=== PATIENT | female | born 1950 | race Caucasian/White ===

== ENCOUNTER 2020-12-25 05:48 | Outpatient (RCR) | payer MEDICARE, MEDICAID, SELFPAY ==
[2020-11-27] MEDS: Normal Saline Flush 10 ML SYR IVP (12:16)
[2020-11-27] MEDS: Heparin 500 UNITS/5 ML SYRINGE (12:16)
[2020-11-27 12:21] LABS: Abs Immature Grans 0.02 10^3/uL (0.0-0.06); Absolute Basophil Count 0.04 10^3/uL (0.0-0.2); Absolute Eosinophil Count 0.38 10^3/uL (0.0-0.7); Absolute Lymphocyte Count 2.53 10^3/uL (1.2-3.4); Absolute Monocyte Count 0.63 10^3/uL (0.1-0.8); Absolute Neutrophil Count 2.78 10^3/uL (1.2-6.7); Basophils % 0.6; HCT 35.6 % (36.0-46.0); HGB 11.4 g/dL (11.2-15.7); Immature Grans % 0.3; Lymphocytes % 39.7; MCH 28.8 pg (27.0-33.0); MCV 89.9 fL (80-95); MPV 9.8 fL (8.0-11.0); Monocytes % 9.9; Neutrophils % 43.5; Nucleated RBC 0 %; Platelet Count 193 10^3/uL (130-400); RBC 3.96 10^6/uL (3.93-5.22); RDW 15.7 % (11.7-14.6); WBC 6.38 10^3/uL (4.4-10.8)
[2020-11-27 12:34] LABS: ALT 28 U/L (14-59); AST 21 U/L (15-37); Albumin 3.4 g/dL (3.4-5.0); Alkaline Phosphatase 115 U/L (46-116); Anion Gap 9.6 mmol/L (3-11); BUN 16 mg/dL (7-18); Bilirubin, Total 0.4 mg/dL (0.2-1.0); CO2 27.4 mmol/L (21.0-32.0); CREATININE 0.8 mg/dL (0.55-1.02); Chloride 103 mmol/L (98-107); Glucose 118 mg/dL (74-106); Potassium 4.1 mmol/L (3.5-5.1); Sodium 140 mmol/L (136-145)
[2020-11-27 17:23] LABS: CEA <2.0 ng/mL (See Note)
[2020-12-01] MEDS: Normal Saline Flush 10 ML SYR IVP (10:45)
[2020-12-01 11:09] LABS: Abs Immature Grans 0.01 10^3/uL (0.0-0.06); Absolute Basophil Count 0.06 10^3/uL (0.0-0.2); Absolute Eosinophil Count 0.33 10^3/uL (0.0-0.7); Absolute Lymphocyte Count 2.46 10^3/uL (1.2-3.4); Absolute Monocyte Count 0.56 10^3/uL (0.1-0.8); Absolute Neutrophil Count 3.58 10^3/uL (1.2-6.7); Basophils % 0.9; Eosinophils % 4.7; HCT 35.5 % (36.0-46.0); HGB 11.3 g/dL (11.2-15.7); Immature Grans % 0.1; Lymphocytes % 35.1; MCH 28.4 pg (27.0-33.0); MCHC 31.8 % (32.0-36.0); MCV 89.2 fL (80-95); MPV 9.8 fL (8.0-11.0); Neutrophils % 51.2; Nucleated RBC 0 %; Platelet Count 167 10^3/uL (130-400); RBC 3.98 10^6/uL (3.93-5.22); RDW 15.9 % (11.7-14.6); RDW-SD 52.2 fL
[2020-12-01 11:33] LABS: ALT 25 U/L (14-59); AST 23 U/L (15-37); Albumin 3.4 g/dL (3.4-5.0); Alkaline Phosphatase 122 U/L (46-116); Anion Gap 12.8 mmol/L (3-11); BUN 17 mg/dL (7-18); Bilirubin, Total 0.4 mg/dL (0.2-1.0); CO2 24.2 mmol/L (21.0-32.0); CREATININE 0.8 mg/dL (0.55-1.02); Calcium 9.1 mg/dL (8.5-10.1); Chloride 104 mmol/L (98-107); Glucose 109 mg/dL (74-106); Potassium 3.8 mmol/L (3.5-5.1); Sodium 141 mmol/L (136-145); Total Protein 7.9 g/dL (6.4-8.2)
[2020-12-02 08:06] LABS: CEA <2.0 ng/mL (See Note)
[2020-12-10] MEDS: Normal Saline Flush 10 ML SYR IVP (08:53)
[2020-12-10] MEDS: Heparin 500 UNITS/5 ML SYRINGE IV (08:54)
[2020-12-10 08:56] LABS: Abs Immature Grans 0.03 10^3/uL (0.0-0.06); Absolute Basophil Count 0.06 10^3/uL (0.0-0.2); Absolute Eosinophil Count 0.59 10^3/uL (0.0-0.7); Absolute Neutrophil Count 2.72 10^3/uL (1.2-6.7); Basophils % 0.8; HCT 34.7 % (36.0-46.0); HGB 11.2 g/dL (11.2-15.7); Immature Grans % 0.4; Lymphocytes % 43.2; MCH 29.2 pg (27.0-33.0); MCHC 32.3 % (32.0-36.0); MCV 90.6 fL (80-95); Monocytes % 10.8; Neutrophils % 36.8; Nucleated RBC 0 %; Platelet Count 194 10^3/uL (130-400); RBC 3.83 10^6/uL (3.93-5.22); RDW 15.5 % (11.7-14.6); RDW-SD 51.1 fL
[2020-12-10 09:24] LABS: ALT 25 U/L (14-59); AST 19 U/L (15-37); Albumin 3.4 g/dL (3.4-5.0); Alkaline Phosphatase 116 U/L (46-116); Anion Gap 8.5 mmol/L (3-11); BUN 34 mg/dL (7-18); Bilirubin, Total 0.4 mg/dL (0.2-1.0); CO2 27.5 mmol/L (21.0-32.0); CREATININE 0.9 mg/dL (0.55-1.02); Calcium 9.1 mg/dL (8.5-10.1); Chloride 103 mmol/L (98-107); Glucose 172 mg/dL (74-106); Potassium 4.2 mmol/L (3.5-5.1); Sodium 139 mmol/L (136-145); Total Protein 7.8 g/dL (6.4-8.2)
[2020-12-15] MEDS: Normal Saline Flush 10 ML SYR IVP (11:20)
[2020-12-15 11:43] LABS: Abs Immature Grans 0.02 10^3/uL (0.0-0.06); Absolute Basophil Count 0.05 10^3/uL (0.0-0.2); Absolute Eosinophil Count 0.31 10^3/uL (0.0-0.7); Absolute Lymphocyte Count 2.34 10^3/uL (1.2-3.4); Absolute Monocyte Count 0.88 10^3/uL (0.1-0.8); Absolute Neutrophil Count 3.48 10^3/uL (1.2-6.7); Basophils % 0.7; Eosinophils % 4.4; HCT 37.5 % (36.0-46.0); Immature Grans % 0.3; Lymphocytes % 33.1; MCH 28.9 pg (27.0-33.0); MCV 90.4 fL (80-95); Monocytes % 12.4; Neutrophils % 49.1; Nucleated RBC 0 %; Platelet Count 148 10^3/uL (130-400); RBC 4.15 10^6/uL (3.93-5.22); RDW 15.9 % (11.7-14.6); RDW-SD 52.1 fL; WBC 7.08 10^3/uL (4.4-10.8)
[2020-12-15 12:09] LABS: ALT 30 U/L (14-59); AST 28 U/L (15-37); Albumin 3.6 g/dL (3.4-5.0); Alkaline Phosphatase 131 U/L (46-116); Anion Gap 8.6 mmol/L (3-11); BUN 36 mg/dL (7-18); Bilirubin, Total 0.5 mg/dL (0.2-1.0); CO2 27.4 mmol/L (21.0-32.0); CREATININE 0.8 mg/dL (0.55-1.02); Calcium 9.1 mg/dL (8.5-10.1); Chloride 102 mmol/L (98-107); Glucose 159 mg/dL (74-106); Sodium 138 mmol/L (136-145); Total Protein 8.2 g/dL (6.4-8.2)
[2020-12-15 22:41] LABS: CEA <2.0 ng/mL (See Note)
== END 2020-12-26 23:59 | disposition home or self-care (01) ==
LOC: INF 05:48
PROVIDERS: Visit Provider Internal Medicine Hematology & Oncology
DX: C18.2 Malignant neoplasm of ascending colon (principal); Z45.2 Encounter for adjustment and management of vascular access device
CPT/HCPCS: 36591; 80053; 82378; 85025

== ENCOUNTER 2021-01-25 10:00 | Outpatient (RCR) | payer MEDICARE, MEDICAID, SELFPAY ==
[2020-12-28] MEDS: Normal Saline Flush 10 ML SYR IVP (13:25)
[2020-12-28 13:40] LABS: Abs Immature Grans 0.03 10^3/uL (0.0-0.06); Absolute Basophil Count 0.04 10^3/uL (0.0-0.2); Absolute Eosinophil Count 0.25 10^3/uL (0.0-0.7); Absolute Lymphocyte Count 2.24 10^3/uL (1.2-3.4); Absolute Neutrophil Count 3.62 10^3/uL (1.2-6.7); Basophils % 0.6; Eosinophils % 3.6; HCT 34.6 % (36.0-46.0); HGB 11.3 g/dL (11.2-15.7); Immature Grans % 0.4; Lymphocytes % 32.1; MCH 29.7 pg (27.0-33.0); MCHC 32.7 % (32.0-36.0); MCV 90.8 fL (80-95); Monocytes % 11.5; Neutrophils % 51.8; Nucleated RBC 0 %; RBC 3.81 10^6/uL (3.93-5.22); RDW 15.6 % (11.7-14.6); RDW-SD 50.5 fL; WBC 6.98 10^3/uL (4.4-10.8)
[2020-12-28 13:52] LABS: ALT 46 U/L (14-59); AST 29 U/L (15-37); Albumin 3.3 g/dL (3.4-5.0); Alkaline Phosphatase 121 U/L (46-116); Anion Gap 7.5 mmol/L (3-11); BUN 22 mg/dL (7-18); Bilirubin, Total 0.5 mg/dL (0.2-1.0); CO2 28.5 mmol/L (21.0-32.0); CREATININE 0.7 mg/dL (0.55-1.02); Calcium 9.2 mg/dL (8.5-10.1); Chloride 103 mmol/L (98-107); Glucose 112 mg/dL (74-106); Potassium 4.1 mmol/L (3.5-5.1); Sodium 139 mmol/L (136-145); Total Protein 7.7 g/dL (6.4-8.2)
[2020-12-28 13:53] LABS: Diff Comment PLT Morph Reviewed; Platelet Count 99 10^3/uL (130-400); RBC Morphology Normal
[2020-12-28 21:11] LABS: CEA 2.2 ng/mL (See Note)
[2021-01-12] MEDS: Normal Saline Flush 10 ML SYR IVP (10:32)
[2021-01-12 10:45] LABS: Abs Immature Grans 0.01 10^3/uL (0.0-0.06); Absolute Basophil Count 0.04 10^3/uL (0.0-0.2); Absolute Eosinophil Count 0.27 10^3/uL (0.0-0.7); Absolute Lymphocyte Count 1.81 10^3/uL (1.2-3.4); Absolute Monocyte Count 0.75 10^3/uL (0.1-0.8); Absolute Neutrophil Count 1.63 10^3/uL (1.2-6.7); Basophils % 0.9; HCT 35.6 % (36.0-46.0); HGB 11.5 g/dL (11.2-15.7); Immature Grans % 0.2; Lymphocytes % 40.1; MCH 30.1 pg (27.0-33.0); MCHC 32.3 % (32.0-36.0); MCV 93.2 fL (80-95); MPV 10.2 fL (8.0-11.0); Monocytes % 16.6; Neutrophils % 36.2; Nucleated RBC 0 %; Platelet Count 102 10^3/uL (130-400); RBC 3.82 10^6/uL (3.93-5.22); RDW-SD 54.1 fL; WBC 4.51 10^3/uL (4.4-10.8)
[2021-01-12 11:00] LABS: ALT 42 U/L (14-59); AST 33 U/L (15-37); Albumin 3.2 g/dL (3.4-5.0); Alkaline Phosphatase 128 U/L (46-116); Anion Gap 8.8 mmol/L (3-11); BUN 15 mg/dL (7-18); Bilirubin, Total 0.8 mg/dL (0.2-1.0); CO2 27.2 mmol/L (21.0-32.0); CREATININE 0.8 mg/dL (0.55-1.02); Calcium 8.9 mg/dL (8.5-10.1); Chloride 104 mmol/L (98-107); Glucose 118 mg/dL (74-106); Potassium 3.9 mmol/L (3.5-5.1); Sodium 140 mmol/L (136-145); Total Protein 7.7 g/dL (6.4-8.2)
[2021-01-12 22:27] LABS: CEA 2.2 ng/mL (See Note)
[2021-01-25] MEDS: Normal Saline Flush 10 ML SYR IVP (10:32)
[2021-01-25 10:48] LABS: Abs Immature Grans 0.01 10^3/uL (0.0-0.06); Absolute Basophil Count 0.04 10^3/uL (0.0-0.2); Absolute Eosinophil Count 0.17 10^3/uL (0.0-0.7); Absolute Lymphocyte Count 1.61 10^3/uL (1.2-3.4); Absolute Monocyte Count 0.67 10^3/uL (0.1-0.8); Absolute Neutrophil Count 2.43 10^3/uL (1.2-6.7); Basophils % 0.8; Eosinophils % 3.4; HCT 34.7 % (36.0-46.0); HGB 11.5 g/dL (11.2-15.7); Immature Grans % 0.2; Lymphocytes % 32.7; MCH 30.6 pg (27.0-33.0); MCHC 33.1 % (32.0-36.0); MCV 92.3 fL (80-95); MPV 10.2 fL (8.0-11.0); Monocytes % 13.6; Neutrophils % 49.3; Nucleated RBC 0 %; Platelet Count 124 10^3/uL (130-400); RBC 3.76 10^6/uL (3.93-5.22); RDW 16.4 % (11.7-14.6); RDW-SD 54.7 fL; WBC 4.93 10^3/uL (4.4-10.8)
[2021-01-25 11:03] LABS: ALT 29 U/L (14-59); AST 25 U/L (15-37); Alkaline Phosphatase 120 U/L (46-116); Anion Gap 11.4 mmol/L (3-11); BUN 10 mg/dL (7-18); Bilirubin, Total 0.8 mg/dL (0.2-1.0); CO2 26.6 mmol/L (21.0-32.0); CREATININE 0.8 mg/dL (0.55-1.02); Calcium 8.8 mg/dL (8.5-10.1); Chloride 104 mmol/L (98-107); Glucose 100 mg/dL (74-106); Potassium 3.8 mmol/L (3.5-5.1); Sodium 142 mmol/L (136-145); Total Protein 7.5 g/dL (6.4-8.2)
[2021-01-25 17:57] LABS: CEA 2.3 ng/mL (See Note)
== END 2021-01-26 23:59 | disposition home or self-care (01) ==
LOC: INF 10:00
PROVIDERS: Visit Provider Internal Medicine Hematology & Oncology
DX: C18.2 Malignant neoplasm of ascending colon (principal); Z45.2 Encounter for adjustment and management of vascular access device
CPT/HCPCS: 36591; 80053; 82378; 85025

== ENCOUNTER 2021-02-23 08:15 | Outpatient (RCR) | payer MEDICARE, MEDICAID, SELFPAY ==
[2021-02-08 09:50] LABS: Abs Immature Grans 0.03 10^3/uL (0.0-0.06); Absolute Basophil Count 0.05 10^3/uL (0.0-0.2); Absolute Lymphocyte Count 1.76 10^3/uL (1.2-3.4); Absolute Monocyte Count 0.73 10^3/uL (0.1-0.8); Eosinophils % 4.1; HCT 36.1 % (36.0-46.0); HGB 11.7 g/dL (11.2-15.7); Immature Grans % 0.6; Lymphocytes % 36.1; MCH 31.6 pg (27.0-33.0); MCHC 32.4 % (32.0-36.0); MCV 97.6 fL (80-95); MPV 10.5 fL (8.0-11.0); Neutrophils % 43.2; Nucleated RBC 0 %; Platelet Count 101 10^3/uL (130-400); RDW-SD 57.9 fL; WBC 4.87 10^3/uL (4.4-10.8)
[2021-02-08] MEDS: Normal Saline Flush 10 ML SYR IVP (09:56)
[2021-02-08 10:06] LABS: ALT 34 U/L (14-59); AST 34 U/L (15-37); Albumin 3.3 g/dL (3.4-5.0); Alkaline Phosphatase 146 U/L (46-116); Anion Gap 11.3 mmol/L (3-11); BUN 17 mg/dL (7-18); Bilirubin, Total 0.8 mg/dL (0.2-1.0); CO2 25.7 mmol/L (21.0-32.0); Calcium 9.1 mg/dL (8.5-10.1); Chloride 104 mmol/L (98-107); Estimated GFR 54.66 (mL/min/1.73m2); Glucose 126 mg/dL (74-106); Potassium 3.9 mmol/L (3.5-5.1); Sodium 141 mmol/L (136-145); Total Protein 8.1 g/dL (6.4-8.2)
[2021-02-08 22:58] LABS: CEA <2.0 ng/mL (See Note)
[2021-02-23 08:52] LABS: Absolute Basophil Count 0.03 10^3/uL (0.0-0.2); Absolute Eosinophil Count 0.16 10^3/uL (0.0-0.7); Absolute Lymphocyte Count 1.52 10^3/uL (1.2-3.4); Absolute Monocyte Count 0.57 10^3/uL (0.1-0.8); Absolute Neutrophil Count 1.22 10^3/uL (1.2-6.7); Basophils % 0.9; Eosinophils % 4.6; HCT 34.3 % (36.0-46.0); HGB 11.3 g/dL (11.2-15.7); Lymphocytes % 43.4; MCH 32.6 pg (27.0-33.0); MCHC 32.9 % (32.0-36.0); MCV 98.8 fL (80-95); MPV 11.4 fL (8.0-11.0); Monocytes % 16.3; Neutrophils % 34.8; Nucleated RBC 0 %; RBC 3.47 10^6/uL (3.93-5.22); RDW 15.8 % (11.7-14.6); RDW-SD 57.5 fL
[2021-02-23] MEDS: Normal Saline Flush 10 ML SYR IVP (08:52)
[2021-02-23 09:05] LABS: ALT 43 U/L (14-59); AST 44 U/L (15-37); Albumin 3.2 g/dL (3.4-5.0); Alkaline Phosphatase 161 U/L (46-116); Anion Gap 7.7 mmol/L (3-11); BUN 19 mg/dL (7-18); Bilirubin, Total 0.7 mg/dL (0.2-1.0); CO2 27.3 mmol/L (21.0-32.0); CREATININE 0.8 mg/dL (0.55-1.02); Calcium 8.7 mg/dL (8.5-10.1); Chloride 106 mmol/L (98-107); Glucose 123 mg/dL (74-106); Potassium 3.9 mmol/L (3.5-5.1); Sodium 141 mmol/L (136-145); Total Protein 7.7 g/dL (6.4-8.2)
[2021-02-23 09:09] LABS: Platelet Count 94 10^3/uL (130-400)
[2021-02-23 09:10] LABS: Diff Comment Diff Reviewed; RBC Morphology Normal
[2021-02-23 17:25] LABS: CEA 2.2 ng/mL (See Note)
== END 2021-02-25 23:59 | disposition home or self-care (01) ==
LOC: INF 08:15
PROVIDERS: Visit Provider Internal Medicine Hematology & Oncology
DX: C18.2 Malignant neoplasm of ascending colon (principal); Z45.2 Encounter for adjustment and management of vascular access device
CPT/HCPCS: 36591; 80053; 82378; 85025

== ENCOUNTER 2021-03-16 02:15 | Outpatient (RCR) | payer MEDICARE, MEDICAID, SELFPAY ==
[2021-03-02] MEDS: Normal Saline Flush 10 ML SYR IVP (07:50)
[2021-03-02 08:12] LABS: Abs Immature Grans 0.02 10^3/uL (0.0-0.06); Absolute Basophil Count 0.08 10^3/uL (0.0-0.2); Absolute Eosinophil Count 0.22 10^3/uL (0.0-0.7); Absolute Lymphocyte Count 2.37 10^3/uL (1.2-3.4); Absolute Monocyte Count 0.86 10^3/uL (0.1-0.8); Absolute Neutrophil Count 1.36 10^3/uL (1.2-6.7); Basophils % 1.6; Eosinophils % 4.5; HCT 37.4 % (36.0-46.0); HGB 12.1 g/dL (11.2-15.7); Immature Grans % 0.4; Lymphocytes % 48.3; MCH 32.5 pg (27.0-33.0); MCHC 32.4 % (32.0-36.0); MCV 100.5 fL (80-95); MPV 10.1 fL (8.0-11.0); Monocytes % 17.5; Neutrophils % 27.7; Nucleated RBC 0 %; Platelet Count 163 10^3/uL (130-400); RBC 3.72 10^6/uL (3.93-5.22); RDW 15.2 % (11.7-14.6); RDW-SD 56.9 fL; WBC 4.91 10^3/uL (4.4-10.8)
[2021-03-02 08:25] LABS: ALT 35 U/L (14-59); AST 33 U/L (15-37); Albumin 3.4 g/dL (3.4-5.0); Alkaline Phosphatase 146 U/L (46-116); Anion Gap 0.4 mmol/L (3-11); BUN 19 mg/dL (7-18); Bilirubin, Total 0.6 mg/dL (0.2-1.0); CO2 25.6 mmol/L (21.0-32.0); CREATININE 0.8 mg/dL (0.55-1.02); Chloride 103 mmol/L (98-107); Glucose 169 mg/dL (74-106); Potassium 3.6 mmol/L (3.5-5.1); Sodium 129 mmol/L (136-145); Total Protein 8.3 g/dL (6.4-8.2)
[2021-03-02 17:32] LABS: CEA 2.3 ng/mL (See Note)
[2021-03-16 08:43] LABS: Abs Immature Grans 0.02 10^3/uL (0.0-0.06); Absolute Basophil Count 0.03 10^3/uL (0.0-0.2); Absolute Eosinophil Count 0.34 10^3/uL (0.0-0.7); Absolute Lymphocyte Count 1.47 10^3/uL (1.2-3.4); Absolute Monocyte Count 0.81 10^3/uL (0.1-0.8); Absolute Neutrophil Count 3.04 10^3/uL (1.2-6.7); Basophils % 0.5; HCT 33.4 % (36.0-46.0); HGB 11.2 g/dL (11.2-15.7); Immature Grans % 0.4; Lymphocytes % 25.7; MCH 33.4 pg (27.0-33.0); MCHC 33.5 % (32.0-36.0); MCV 99.7 fL (80-95); MPV 10.6 fL (8.0-11.0); Monocytes % 14.2; Neutrophils % 53.2; Nucleated RBC 0 %; Platelet Count 109 10^3/uL (130-400); RBC 3.35 10^6/uL (3.93-5.22); RDW 14.3 % (11.7-14.6); RDW-SD 51.9 fL; WBC 5.71 10^3/uL (4.4-10.8)
[2021-03-16] MEDS: Normal Saline Flush 10 ML SYR IVP (08:51)
[2021-03-16 08:59] LABS: ALT 31 U/L (14-59); AST 33 U/L (15-37); Albumin 3.2 g/dL (3.4-5.0); Alkaline Phosphatase 137 U/L (46-116); Anion Gap 11.2 mmol/L (3-11); BUN 19 mg/dL (7-18); Bilirubin, Total 0.7 mg/dL (0.2-1.0); CO2 24.8 mmol/L (21.0-32.0); CREATININE 0.8 mg/dL (0.55-1.02); Calcium 9.2 mg/dL (8.5-10.1); Chloride 104 mmol/L (98-107); Glucose 161 mg/dL (74-106); Potassium 3.7 mmol/L (3.5-5.1); Sodium 140 mmol/L (136-145); Total Protein 7.7 g/dL (6.4-8.2)
== END 2021-03-28 23:59 | disposition home or self-care (01) ==
LOC: INF 02:15
PROVIDERS: Visit Provider Internal Medicine Hematology & Oncology
DX: C18.2 Malignant neoplasm of ascending colon (principal); Z45.2 Encounter for adjustment and management of vascular access device
CPT/HCPCS: 36591; 80053; 82378; 85025

== ENCOUNTER 2021-04-27 02:14 | Outpatient (RCR) | payer MEDICARE, MEDICAID, SELFPAY ==
[2021-03-30] MEDS: Normal Saline Flush 10 ML SYR IVP (08:16)
[2021-03-30 08:28] LABS: Abs Immature Grans 0.01 10^3/uL (0.0-0.06); Absolute Basophil Count 0.04 10^3/uL (0.0-0.2); Absolute Eosinophil Count 0.23 10^3/uL (0.0-0.7); Absolute Lymphocyte Count 2.28 10^3/uL (1.2-3.4); Absolute Monocyte Count 0.75 10^3/uL (0.1-0.8); Absolute Neutrophil Count 1.48 10^3/uL (1.2-6.7); Basophils % 0.8; Eosinophils % 4.8; HCT 34.6 % (36.0-46.0); HGB 11.4 g/dL (11.2-15.7); Immature Grans % 0.2; Lymphocytes % 47.6; MCH 32.7 pg (27.0-33.0); MCHC 32.9 % (32.0-36.0); MCV 99.1 fL (80-95); MPV 9.9 fL (8.0-11.0); Monocytes % 15.7; Neutrophils % 30.9; Nucleated RBC 0 %; Platelet Count 92 10^3/uL (130-400); RBC 3.49 10^6/uL (3.93-5.22); RDW 13.6 % (11.7-14.6); RDW-SD 48.8 fL; WBC 4.79 10^3/uL (4.4-10.8)
[2021-03-30 08:40] LABS: ALT 31 U/L (14-59); AST 32 U/L (15-37); Albumin 3.2 g/dL (3.4-5.0); Alkaline Phosphatase 132 U/L (46-116); Anion Gap 9.6 mmol/L (3-11); BUN 15 mg/dL (7-18); Bilirubin, Total 0.6 mg/dL (0.2-1.0); CO2 26.4 mmol/L (21.0-32.0); CREATININE 0.9 mg/dL (0.55-1.02); Calcium 8.9 mg/dL (8.5-10.1); Chloride 105 mmol/L (98-107); Glucose 176 mg/dL (74-106); Potassium 3.8 mmol/L (3.5-5.1); Sodium 141 mmol/L (136-145); Total Protein 7.9 g/dL (6.4-8.2)
[2021-04-07] MEDS: Normal Saline Flush 10 ML SYR IVP (10:40)
[2021-04-07 10:53] LABS: Abs Immature Grans 0.03 10^3/uL (0.0-0.06); Absolute Basophil Count 0.06 10^3/uL (0.0-0.2); Absolute Eosinophil Count 0.26 10^3/uL (0.0-0.7); Absolute Monocyte Count 1.05 10^3/uL (0.1-0.8); Basophils % 0.9; Eosinophils % 3.9; HCT 36.9 % (36.0-46.0); HGB 12.2 g/dL (11.2-15.7); Immature Grans % 0.4; Lymphocytes % 41.8; MCH 32.4 pg (27.0-33.0); MCHC 33.1 % (32.0-36.0); MCV 98.1 fL (80-95); MPV 10.2 fL (8.0-11.0); Monocytes % 15.7; Neutrophils % 37.3; Nucleated RBC 0 %; Platelet Count 181 10^3/uL (130-400); RBC 3.76 10^6/uL (3.93-5.22); RDW 13.9 % (11.7-14.6); RDW-SD 50.4 fL
[2021-04-07 11:11] LABS: Calcium 9.2 mg/dL (8.5-10.1)
[2021-04-07 11:12] LABS: ALT 34 U/L (14-59); AST 37 U/L (15-37); Albumin 3.6 g/dL (3.4-5.0); Alkaline Phosphatase 134 U/L (46-116); Anion Gap 10.8 mmol/L (3-11); BUN 18 mg/dL (7-18); Bilirubin, Total 0.5 mg/dL (0.2-1.0); CO2 26.2 mmol/L (21.0-32.0); CREATININE 0.9 mg/dL (0.55-1.02); Chloride 104 mmol/L (98-107); Glucose 118 mg/dL (74-106); Potassium 3.7 mmol/L (3.5-5.1); Sodium 141 mmol/L (136-145); Total Protein 8.3 g/dL (6.4-8.2)
[2021-04-07 18:19] LABS: CEA 2.2 ng/mL (See Note)
[2021-04-27] MEDS: Normal Saline Flush 10 ML SYR IVP (09:19)
[2021-04-27 09:34] LABS: Abs Immature Grans 0.01 10^3/uL (0.0-0.06); Absolute Basophil Count 0.05 10^3/uL (0.0-0.2); Absolute Eosinophil Count 0.21 10^3/uL (0.0-0.7); Absolute Lymphocyte Count 2.08 10^3/uL (1.2-3.4); Absolute Monocyte Count 0.75 10^3/uL (0.1-0.8); Absolute Neutrophil Count 1.03 10^3/uL (1.2-6.7); Basophils % 1.2; Eosinophils % 5.1; HCT 36.4 % (36.0-46.0); HGB 11.9 g/dL (11.2-15.7); Immature Grans % 0.2; Lymphocytes % 50.4; MCH 32.4 pg (27.0-33.0); MCHC 32.7 % (32.0-36.0); MCV 99.2 fL (80-95); MPV 10.4 fL (8.0-11.0); Monocytes % 18.2; Neutrophils % 24.9; Nucleated RBC 0 %; Platelet Count 205 10^3/uL (130-400); RBC 3.67 10^6/uL (3.93-5.22); RDW-SD 50.9 fL; WBC 4.13 10^3/uL (4.4-10.8)
[2021-04-27 09:49] LABS: ALT 34 U/L (14-59); AST 35 U/L (15-37); Albumin 3.3 g/dL (3.4-5.0); Alkaline Phosphatase 153 U/L (46-116); Anion Gap 8.5 mmol/L (3-11); BUN 27 mg/dL (7-18); Bilirubin, Total 0.6 mg/dL (0.2-1.0); CO2 26.5 mmol/L (21.0-32.0); CREATININE 0.8 mg/dL (0.55-1.02); Calcium 8.8 mg/dL (8.5-10.1); Chloride 104 mmol/L (98-107); Glucose 144 mg/dL (74-106); Sodium 139 mmol/L (136-145); Total Protein 8.1 g/dL (6.4-8.2)
== END 2021-04-27 23:59 | disposition home or self-care (01) ==
LOC: INF 02:14
PROVIDERS: Visit Provider Internal Medicine Hematology & Oncology
DX: C18.2 Malignant neoplasm of ascending colon (principal); Z45.2 Encounter for adjustment and management of vascular access device
CPT/HCPCS: 36591; 80053; 82378; 85025

== ENCOUNTER 2021-05-25 02:25 | Outpatient (RCR) | payer MEDICARE, MEDICAID, SELFPAY ==
[2021-05-25] MEDS: Normal Saline Flush 10 ML SYR IVP (10:54)
[2021-05-25 11:03] LABS: Abs Immature Grans 0.01 10^3/uL (0.0-0.06); Absolute Basophil Count 0.08 10^3/uL (0.0-0.2); Absolute Eosinophil Count 0.47 10^3/uL (0.0-0.7); Absolute Monocyte Count 0.67 10^3/uL (0.1-0.8); Absolute Neutrophil Count 3.45 10^3/uL (1.2-6.7); Basophils % 1.1; Eosinophils % 6.6; HCT 34.6 % (36.0-46.0); HGB 11.3 g/dL (11.2-15.7); Immature Grans % 0.1; Lymphocytes % 33.9; MCH 31.7 pg (27.0-33.0); MCHC 32.7 % (32.0-36.0); MCV 96.9 fL (80-95); MPV 10.4 fL (8.0-11.0); Monocytes % 9.5; Neutrophils % 48.8; Nucleated RBC 0 %; Platelet Count 160 10^3/uL (130-400); RBC 3.57 10^6/uL (3.93-5.22); RDW 13.5 % (11.7-14.6); RDW-SD 48.2 fL; WBC 7.08 10^3/uL (4.4-10.8)
[2021-05-25 11:15] LABS: ALT 39 U/L (14-59); AST 37 U/L (15-37); Albumin 3.4 g/dL (3.4-5.0); Alkaline Phosphatase 141 U/L (46-116); Anion Gap 9.5 mmol/L (3-11); BUN 15 mg/dL (7-18); Bilirubin, Total 0.6 mg/dL (0.2-1.0); CO2 27.5 mmol/L (21.0-32.0); CREATININE 0.8 mg/dL (0.55-1.02); Calcium 9.2 mg/dL (8.5-10.1); Chloride 103 mmol/L (98-107); Glucose 114 mg/dL (74-106); Potassium 3.9 mmol/L (3.5-5.1); Sodium 140 mmol/L (136-145)
[2021-05-25 17:42] LABS: CEA 2.5 ng/mL (See Note)
== END 2021-05-28 23:59 | disposition home or self-care (01) ==
LOC: INF 02:25
PROVIDERS: Visit Provider Internal Medicine Hematology & Oncology
DX: C18.2 Malignant neoplasm of ascending colon (principal); Z45.2 Encounter for adjustment and management of vascular access device
CPT/HCPCS: 36591; 80053; 82378; 85025

== ENCOUNTER 2021-06-25 12:29 | Outpatient (REF) | payer MEDICARE, MEDICAID, SELFPAY ==
[2021-06-25 11:10] LABS: Abs Immature Grans 0.01 10^3/uL (0.0-0.06); Absolute Basophil Count 0.08 10^3/uL (0.0-0.2); Absolute Eosinophil Count 0.63 10^3/uL (0.0-0.7); Absolute Lymphocyte Count 2.63 10^3/uL (1.2-3.4); Absolute Monocyte Count 0.68 10^3/uL (0.1-0.8); Absolute Neutrophil Count 2.27 10^3/uL (1.2-6.7); Basophils % 1.3; HCT 34.3 % (36.0-46.0); HGB 11.3 g/dL (11.2-15.7); Immature Grans % 0.2; Lymphocytes % 41.7; MCH 31.5 pg (27.0-33.0); MCHC 32.9 % (32.0-36.0); MCV 95.5 fL (80-95); MPV 10.5 fL (8.0-11.0); Monocytes % 10.8; Nucleated RBC 0 %; Platelet Count 137 10^3/uL (130-400); RBC 3.59 10^6/uL (3.93-5.22); RDW 13.2 % (11.7-14.6); RDW-SD 46.5 fL
[2021-06-25 11:57] LABS: ALT 34 U/L (14-59); AST 37 U/L (15-37); Albumin 3.6 g/dL (3.4-5.0); Alkaline Phosphatase 120 U/L (46-116); Anion Gap 11.2 mmol/L (3-11); BUN 21 mg/dL (7-18); Bilirubin, Total 0.8 mg/dL (0.2-1.0); CO2 24.8 mmol/L (21.0-32.0); CREATININE 0.8 mg/dL (0.55-1.02); Chloride 103 mmol/L (98-107); Glucose 96 mg/dL (74-106); Potassium 3.7 mmol/L (3.5-5.1); Sodium 139 mmol/L (136-145); Total Protein 7.8 g/dL (6.4-8.2); Vitamin B12 319 pg/mL (193-986)
[2021-06-25 18:58] LABS: CEA 1.4 ng/mL (See Note)
== END 2021-06-25 12:30 | disposition home or self-care (01) ==
LOC: LBN 12:29
PROVIDERS: Visit Provider Internal Medicine Hematology & Oncology
DX: C18.2 Malignant neoplasm of ascending colon (principal); G60.8 Other hereditary and idiopathic neuropathies
CPT/HCPCS: 80053; 82378; 82607; 85025

== ENCOUNTER 2021-09-24 07:44 | Outpatient (CLI) | payer MEDICARE, MEDICAID, SELFPAY ==
--- OUTSIDE RECORDS SUMMARY | 2021-09-24 07:58 | XMS_ITS | Encounter Summary ---
:1950 Author Care Team Providers Name Role Phone Camilo Moses MD Primary Care Provider [phone] Ari Elizabeth MD General Surgeon [phone] Stephen Mckeon MD Urologist [phone] Reason for Visit PROCEDURE - Port Removal, Schedule Colon oscopy Assessment and Plan Assessment Note 71-year-old female s/p right hemico lectomy and MATT-BSO. Stage IIIB colon cancer (pT4a, pN1b, M0). Poorly differentiated, +LVI. MMR deficient (MLH1 and PMS2 deficient; MSH2 and MSH6 retained). Negative margins. 08/17 lymph nodes positive. Adjuvant FOLFOX (10cycles; stopped short due to neuropathy). Surveillance CT CAP negative for metastatic disease. Chemoport removed today in the office wi thout difficulty. She tolerated the procedure well. Scheduled for her 1 year surveillance co lonoscopy on 09/06/21. Risks, benefits and alternatives to the procedure were discussed with the patient in detail. Risks, including but not limited to, bleeding, infection, perforation, missed lesions, need to reoperate, tristen lure to resolve symptoms and pain were d iscussed with the patient who understood these risks and requested to proceed as planned. All questions answered. Patient understo od and agreed with the above plan. I have reviewed the EMR, including recor ds from PCP, specialists along with review of imaging/diagnostics, which were discussed with the patient where applicable to current presentation. 1. Malignant tumor of colon Discussion Note: None recorded.Patient educational handouts: No information available. Plan of Care Reminders Provider Appointments Follow up 01/04/2022 Nara Moses, 20 2:00PM ? Or 30 on or around Ari miguel 09/10/2023 MD [facility] None ? ? recorded. Referral None ? ? recorded. Procedures None ? ? recorded. Surgeries None ? ? recorded. Imaging None ? ? recorded. Medications Name Start Date ? ? atorvastatin 40 mg tablet 09/06/2021 Take 1 tablet every day by oral route for 90 days. citalopram 40 mg tablet 09/06/2021 Take 1 tablet every day by oral route in the morning for 90 days. melatonin 3 mg capsule 09/06/2021 Take 1 capsule every day by oral route at bedtime. Medications Administered None recorded. Vitals Height 4 ft 11 in Results Lab Results None recorded. Allergies Code Code System Name Reaction Severity Onset Sulfa (Sulfonamide Hives ? ? Antibiotics) 22429 RxNorm Tetracycline Hives ? ? Problems Name Status Onset Date Source ? Anxiety Active 07/13/2020 ? Chronic Insomnia Active 07/21/2020 ? Malignant Tumor of Colon Active 07/27/2020 ? Cirrhosis of Liver Active 01/21/2021 ? Procedures Date Name Performed by ? 09/06/2021 Colonoscopy Information not avai lable Notes: F/u in 2 years 10/16/2020 Port Vascular Access Insertion Informati on not available Notes: colon cancer 07/27/2020 Cystoscopy Information not avai lable Notes: intraoperative co nsultation with identification of and limited dissection of right ureter; assist on removal of infiltrating right pelvic tumor, cystourethroscopy with placement of right ureteral stent ([facility]--Dr Mckeon) 07/27/2020 07/27/2020 Hysterectomy Information not avai lable Notes: with bilateral oophorectomy 07/26/2020 Right Colectomy Information not avai lable Notes: open Right hemicolectomy. 07/13/2020 Colonoscopy Information not avai lable Notes: lg mass in cecum. 2 larger raymon yps just proximal to mass. ? Rhinoplasty Information not avai lable ? Ligation of Fallopian Tube Information n ot available Notes: and Reversal Vaccine List Notes: Patient declines all vacc delphine Social History Tobacco Smoking Status Current Every Day Smoker Notes: 2 -6 cigarettes per day What is your level of alcohol None consumption? Any signs of neglect or no signs of neglect or abuse abuse? noted Did the fall result in an N injury? Has tobacco cessation N counseling been provided? Have you used IV drugs? N What is your code status? 0 How much tobacco do you chew? none What was the date of your 12/08/2020 most recent tobacco screening? Do you or have you ever used Never used electronic e-cigarettes or vape? cigarettes Do you have an advanced N directive? Do you feel safe at home? Y How many years have you 49 smoked tobacco? Have you fallen in the last 3 N months? Functional Status Unknown. Past Encounters 07/27/2021 Malignant Tumor of Colon Ari Elizabeth MD: [address] [place] [address], Ph. 07/06/2021 Pleuritic Pain; Anxiety; Administration of Influenza Vaccine; Active or Passive Immunization; Coronary Arteriosclerosis; Iron Deficiency Anemia; Cirrhosis of Liver Camilo Moses MD: [address] [place] [phone], Ph. History of Present Illness Note: <div>71-year-old female presents for port removal. Referred by [facility] [place]-[facility], Dr. Porras. </div><div>
</div><div>
</div><div>Overall doing well. Eager for chemoport removal. </div><div>
</div><div>BMs normal. Denies nausea/emesis. Appetite is good. </div><div>
</div><div>Neuropathy persists. </div><div> </div><div>
</div><div>Colon cancer, pT4a, pN1b, M0. Stage IIIB. </div><div>
</div><div>Initial colonoscopy on 07/13/20 identified cecal mass; biopsy-proven adenocarcinoma. MMR deficient (MLH1 and PMS2 deficient; MSH2 and MSH6 retained). </div><div>&lt ;br></div><div>Poorly differentiated adenocarcinoma with direct invasion of ovary, Fallopian tube. +LVI. No perineural invasion. Negative margins. 08/17 lymph nodes positive. </div><div>
</div><div>CEA levels have been normal. </div><div>
</div><div>FOLFOX from 11/17/20 to A 04/07/21. Treatment discontinued early due to neuropathy. </div><div>
</div><div>Most recent CT C/A/P on 06/18/21: Noevidence of neoplastic/metastatic disease within the chest. No evidence of neoplastic/metastatic disease within the abdomen and pelvis.</div><div>
</div><div>Referral sent for removal of chemoport. She also will be due for 1 year surveillance colonoscopy. </div><div>
</div> Review of Systems: ROS as noted in the HPI Review of Systems None recorded. Physical Exam ? Notes: <p>General: No acute distres s, oriented</p><p>Pulm: Non-labored breathing pattern</p><p>Cardio: RRR </p><p>Abdominal: Soft, NT, ND</p><p>MSK: Right chest wall chemoport; skin i ntact. Catheter palpable over clavicle, confirming IJV entry.</p>
--- OUTSIDE RECORDS SUMMARY | 2021-09-24 07:58 | XMS_ITS | Encounter Summary ---
:1950 Author Care Team Providers Name Role Phone Camilo Moses MD Primary Care Provider [phone] Ari Elizabeth MD General Surgeon [phone] Stephen Mckeon MD Urologist [phone] Reason for Visit None recorded. Assessment and Plan None recorded.Discussion Note: None recorded.Patient educational handouts: No information [...] at bedtime. Medications Administered None recorded. Vitals None recorded. Results Lab Results None recorded. Allergies Code Code System Name Reaction Severity Onset Sulfa (Sulfonamide Hives ? ? Antibiotics) 24809 RxNorm Tetracycline Hives ? ? Problems Name [...] cystourethroscopy with placement of right ureteral stent ([facility]--Dr Mckeon) 07/27/2020 07/27/2020 Hysterectomy Information not avai [...] N months? Functional Status Unknown. Past Encounters 08/04/2021 Ari Elizabeth MD: [address] [place] [address], Ph. 07/27/2021 Malignant Tumor of Colon Ari Elizabeth MD: [address] [place] [address], Ph. History of Present Illness None recorded. Review of Systems None recorded. Physical Exam None recorded.
--- OUTSIDE RECORDS SUMMARY | 2021-09-24 07:58 | XMS_ITS ---
:1950 Author Care Team Providers Name Role Phone CAMILO TILLEY MD Primary Care Provider [phone] DEANNA CASILLAS MD Urologist [phone] JOVAN CHAPIN MD General Surgeon [phone] Allergies Code Code System Name Reaction Severity Status Onset Sulfa Hives ? Active ? (Sulfonamide Antibiotics) 27442 RxNorm Tetracycline Hives ? Active ? Medications Name Status Start Date Stop Date ? ? atorvastatin 40 mg tablet Active 09/06/2021 Not av ailable Take 1 tablet every day by oral route for 90 days. Augmentin 875 mg-125 mg tablet Completed 08/08/2020 0 08/13/2020 Take 1 tablet every 12 hours by oral route for 5 days. citalopram 20 mg tablet Completed ? 07/15/19 21 TAKE ONE TABLET BY MOUTH EVERY MORNING citalopram 40 mg tablet Active 09/06/2021 Not avai lable Take 1 tablet every day by oral route in the morning for 90 day s. erythromycin 500 mg tablet Completed ? 07/28 Take 2 Tablets at 1 pm, 2 pm, and at Bedtime the day before nirmala boyd ferrous sulfate 325 mg (65 mg iron) tablet Completed ? 07/06/2021 Take 1 tablet every other day by oral route for 90 days. levofloxacin 250 mg tablet Completed ? 10/12 one tablet daily for three days lorazepam 0.5 mg tablet Completed ? 07/17/19 21 TAKE ONE TABLET BY MOUTH TWICE A DAY NEEDED lorazepam 1 mg tablet Completed 08/08/2020 08/13/2020 Take 1 tablet twice a day by oral route as needed. melatonin Completed ? 07/31/2020 Take every night melatonin 3 mg capsule Active 09/06/2021 Not avail able Take 1 capsule every day by oral route at bedtime. neomycin 500 mg tablet Completed ? Take 2 Tablets at 1 pm, 2 pm, and at Bedtime the day before nirmala boyd oxycodone 5 mg capsule Completed 07/31/2020 Take 5 mg every 4-6 hours by oral route as needed for 3 days. oxycodone 5 mg tablet Completed 07/31/2020 08/08/2020 Take 1 tablet every 4-6 hours by oral route as needed for 3 day s. phenazopyridine 95 mg tablet Completed ? 1 tab now Rozerem 8 mg tablet Active ? Not availabl e Take 1 tablet every day by oral route. zolpidem 5 mg tablet Completed ? 07/30/2020 Take 1 tablet every day by oral route at bedtime for 28 days. Problems Name Status Onset Date Source ? [...] cystourethroscopy with placement of right ureteral stent ([facility]--Dr Casillas) 07/27/2020 07/27/2020 Hysterectomy Information not avai lable Notes: with bilateral oophorectomy 07/26/2020 Right Colectomy Information not avai lable Notes: open Right hemicolectomy. 07/13/2020 Colonoscopy Information not avai lable Notes: lg mass in cecum. 2 larger raymon yps just proximal to mass. ? Rhinoplasty Information not avai lable ? Ligation of Fallopian Tube Information n ot available Notes: and Reversal 07/16/2020 [facility] [address] [place] [address] (Work Place) 07/17/2020 CT, Chest + Abdomen + Pelvis, W/ [facility] Radiology (Internal) Contrast [address] [place] [address] (180 (Work Place) 08/05/2020 CT, Abdomen + Pelvis, W/ Contrast [facility] Radiology (Internal) [address] [place], [place] [id number] (Work Place) Results Lab Results Date Name Specimen Result Interpretation Description Value Range Status Address ? 01/07/2021 Platelets, BLD ? Plt 152 10*3/uL 130-450 Fin al [place] Auto, Blood 10*3/uL [facility] (Internal[facility] : [address] 01/07/2021 Prothrombin BLD ? Pt 11.0 S 9.1-11.7 Final [facility] L ab (Internal) : [address] ? ? BLD ? Inr 1.1 ? Final [facility] ab (Internal) : [address] 09/11/2020 Culture ([place] UR ? Final microbiolog ? Final [facility]), Urine y results [facility] ab (Internal) : [address] 09/11/2020 Urinalysis, Urine ? Color Red ? ? P _urology: Dipstick, clean 41 Medi tegan Reflex Micro catch [facility] ? ? Urine ? Appeara Cloudy ? ? P_urolog y: clean nce 41 Medical Traction [facility] ? ? Urine ? Glucose Normal ? ? P_urolog y: clean 41 Medical catch Mahindra REVA [facility] ? ? Urine ? Bilirub Small ? ? P_urolog y: clean in 41 Medical catch [facility] ? ? Urine ? Ketones Trace ? ? P_urolog y: clean [facility] ? ? Urine ? Specifi 1.020 ? ? P_urolog y: clean c 41 Medical catch [place] [facility] ? ? Urine ? Blood Large ? ? [facility]: [facility] ? ? Urine ? Ph 6.5 ? ? P[facility]urology: clean [facility] ? ? Urine ? Protein 3+ ? ? P_urolog y: clean [facility] ? ? Urine ? Urobili 0.2 ? ? P_urolog y: clean nogen [facility] ? ? Urine ? Nitrite negative ? ? P_urol ogy: clean 41 Medical catch [facility] ? ? Urine ? Leukocy Small ? ? P_urolog y: clean te 41 Medical catch Esterase [facility] [place] 09/02/2020 SARS CoV 2 RNA SWAB ? 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 ? SWAB ? Perform kristie 6800 ? Final Nort h ing Lab [facility] lab [facility] Hospital L ab (Internal) : [address] 08/08/2020 CBC W/ Auto BLD High Wbc 12.3 5.0-10.0 Final [place] Diff 10*3/uL 10*3/uL [facility] Hospital L ab (Internal) : [address] ? ? BLD Low Rbc 3.15 4.10-5.30 Final [place] 10*6/uL 10*6/uL [facility] L ab (Internal) : [address] ? ? BLD Low Hgb 7.8 g/dL 12.0-16.0 Final [place] g/dL [facility] L ab (Internal) : [address] ? ? BLD Low Hct 26.0 % 37.0-47.0 Final [facility] Hospital L ab (Internal) : [address] ? ? BLD ? Mcv 82.5 fL 80.0-96.0 Final [facility] Hospital L ab (Internal) : [address] ? ? BLD Low Mch 24.8 pg 26.0-32.0 Final [place] pg [facility] L ab (Internal) : [address] ? ? BLD Low Mchc 30.0 g/dL 31.0-35.0 Final Nort h g/dL [facility] Hospital L ab (Internal) : [address] ? ? BLD High Rdw 20.9 % 11.5-14.5 Final [facility] L ab (Internal) : [address] ? ? BLD ? Plt 416 10*3/uL 130-450 Final Nort h 10*3/uL [facility] Hospital L ab (Internal) : [address] ? ? BLD ? Anc 9.63 ? Final North 10*3/uL [facility] Hospital L ab (Internal) : [address] ? ? BLD High Nlr 5.44 0.00-3.20 Final [facility] L ab (Internal) : [address] ? ? BLD High Neutro 78.2 % 40.0-75.0 Final [facility] L ab (Internal) : [address] ? ? BLD Low Lymph 14.4 % 20.0-50.0 Final [facility] L ab (Internal) : [address] ? ? BLD ? [place] 5.9 % 2.0-10.0 Final [facility] L ab (Internal) : [address] ? ? BLD Low Eos 0.6 % 1.0-6.0 % Final [facility] L ab (Internal) : [address] ? ? BLD ? Baso 0.4 % 0.0-1.0 % Final [facility] L ab (Internal) : [address] ? ? BLD ? Ig 0.5 % 0.0-0.9 % Final [facility] L ab (Internal) : [address] 08/08/2020 BMP, Serum or S Low g/r 72 mg/dL 74-106 Viktoriya l North Plasma mg/dL [facility] L ab (Internal) : [address] ? ? S Low Bun 6 mg/dL 7-17 Final North mg/dL [facility] L ab (Internal) : [address] ? ? S Low Crea 0.50 mg/dL 0.52-1.04 Final Nor th mg/dL [facility] L ab (Internal) : [address] ? ? S Low Ca 7.8 mg/dL 8.4-10.2 Final North mg/dL [facility] L ab (Internal) : [address] ? ? S Low Na 134 mmol/L 137-145 Final North mmol/L [facility] L ab (Internal) : [address] ? ? S ? K 3.5 mmol/L 3.5-5.1 Final [place] mmol/L [facility] L ab (Internal) : [address] ? ? S ? Cl 100 mmol/L 98-107 Final [place] mmol/L [facility] L ab (Internal) : [address] ? ? S ? Tco2 25.0 mmol/L 22.0-30.0 Final No rth mmol/L [facility] L ab (Internal) : [address] 08/08/2020 RBC Morphology, BLD ? Aniso small ? Viktoriya l [facility] L ab (Internal) : [address] ? ? BLD ? Micro occasional ? Final [facility] L ab (Internal) : [address] 08/07/2020 CBC W/ Auto BLD High Wbc 10.8 5.0-10.0 Final [place] Diff 10*3/uL 10*3/uL [facility] L ab (Internal) : [address] ? ? BLD Low Rbc 3.00 4.10-5.30 Final [place] 10*6/uL 10*6/uL [facility] L ab (Internal) : [address] ? ? BLD Low Hgb 7.3 g/dL 12.0-16.0 Final [place] g/dL [facility] L ab (Internal) : [address] ? ? BLD Low Hct 24.8 % 37.0-47.0 Final [facility] L ab (Internal) : [address] ? ? BLD ? Mcv 82.7 fL 80.0-96.0 Final [facility] L ab (Internal) : [address] ? ? BLD Low Mch 24.3 pg 26.0-32.0 Final [place] pg [facility] L ab (Internal) : [address] ? ? BLD Low Mchc 29.4 g/dL 31.0-35.0 Final Nort h g/dL [facility] L ab (Internal) : [address] ? ? BLD High Rdw 21.2 % 11.5-14.5 Final [facility] L ab (Internal) : [address] ? ? BLD ? Plt 345 10*3/uL 130-450 Final Nort h 10*3/uL [facility] L ab (Internal) : [address] ? ? BLD ? Anc 7.96 ? Final North 10*3/uL [facility] L ab (Internal) : [address] ? ? BLD High Nlr 3.83 0.00-3.20 Final [facility] L ab (Internal) : [address] ? ? BLD ? Neutro 73.8 % 40.0-75.0 Final [facility] L ab (Internal) : [address] ? ? BLD Low Lymph 19.3 % 20.0-50.0 Final [facility] L ab (Internal) : [address] ? ? BLD ? [place] 5.8 % 2.0-10.0 Final [facility] L ab (Internal) : [address] ? ? BLD Low Eos 0.3 % 1.0-6.0 % Final [facility] L ab (Internal) : [address] ? ? BLD ? Baso 0.2 % 0.0-1.0 % Final [facility] L ab (Internal) : [address] ? ? BLD ? Ig 0.6 % 0.0-0.9 % Final [facility] L ab (Internal) : [address] 08/07/2020 CMP, Serum or S Low g/r 72 mg/dL 74-106 Viktoriya l North Plasma mg/dL [facility] L ab (Internal) : [address] ? ? S ? Bun 13 mg/dL 7-17 Final [place] mg/dL [facility] L ab (Internal) : [address] ? ? S Low Crea 0.50 mg/dL 0.52-1.04 Final Nor th mg/dL [facility] L ab (Internal) : [address] ? ? S Low Ca 7.9 mg/dL 8.4-10.2 Final North mg/dL [facility] L ab (Internal) : [address] ? ? S Low Na 132 mmol/L 137-145 Final [place] mmol/L [facility] L ab (Internal) : [address] ? ? S ? K 4.0 mmol/L 3.5-5.1 Final [place] mmol/L [facility] L ab (Internal) : [address] ? ? S ? Cl 99 mmol/L 98-107 Final [place] mmol/L [facility] L ab (Internal) : [address] ? ? S ? Tco2 28.0 mmol/L 22.0-30.0 Final No rth mmol/L [facility] L ab (Internal) : [address] ? ? S Low Tp 5.6 g/dL 6.3-8.2 Final [place] g/dL [facility] L ab (Internal) : [address] ? ? S Low Alb 2.4 g/dL 3.5-5.0 Final [place] g/dL [facility] L ab (Internal) : [address] ? ? S ? Tbil 0.5 mg/dL 0.2-1.3 Final [place] mg/dL [facility] L ab (Internal) : [address] ? ? S ? Alp 102 U/L 38-126 Final North U/L [facility] L ab (Internal) : [address] ? ? S ? Alt 14 U/L 9-52 U/L Final [place] (Sgpt) [facility] L ab (Internal) : [address] ? ? S ? Ast 29 U/L 14-36 U/L Final [place] (Sgot) [facility] L ab (Internal) : [address] 08/07/2020 Bilirubin, S ? Dbil 0.1 mg/dL 0.0-0.3 Final [place] Direct, Serum mg/dL Cou ntry or Plasma Hospita l Lab (Internal) : [address] 08/07/2020 Gamma-glutamyl S High Ggt 71 U/L 12-43 U/L [facility] Transferase Count ry (Ggt), Serum Hosp ital Lab (Internal) : [address] 08/07/2020 RBC Morphology, BLD ? Aniso moderate ? Fi nal [place] Blood [facility] L ab (Internal) : [address] ? ? BLD ? Hypo rare ? Final [facility] ab (Internal) : [address] [place] ? ? BLD ? Poik occasional ? Final [place] [hpf] [facility] ab (Internal) : [address] 08/07/2020 Urinalysis, UR ? UA-colo yellow pale Final North Complete r yellow [facility] ab (Internal) : [address] ? ? UR ABNORM UA-appe hazy clear Final [place] AL ar [facility] ab (Internal) : [address] [place] ? ? UR ? UA-spec 1.015 1.003-1.0 Final [place] Grav 35 [facility] ab (Internal) : [address] [place] ? ? UR ? UA-pH 7.5 [pH] 4.6-8.0 Final [place] [pH] [facility] ab (Internal) : [address] [place] ? ? UR ? UA-leuk negative negative Final Nort h Est [facility] ab (Internal) : [address] [place] ? ? UR ? UA-nitr negative negative Final Nort h ite [facility] ab (Internal) : [address] [place] ? ? UR ? UA-prot negative negative Final Nort h [facility] ab (Internal) : [address] [place] ? ? UR ? UA-gluc negative negative Final Nort h [facility] ab (Internal) : [address] [place] ? ? UR ? UA-keto negative negative Final Nort h ne [facility] ab (Internal) : [address] [place] ? ? UR ? UA-urob normal normal Final [facility] ab (Internal) : [address] [place] ? ? UR ? UA-bili negative negative Final Nort h [facility] ab (Internal) : [address] [place] ? ? UR ABNORM UA-bloo large negative Final North AL d [facility] ab (Internal) : [address] [place] ? ? UR ABNORM UA-WBC 5-10 [hpf] 0-3 [hpf] Final No rth AL [facility] L ab (Internal) : [address] ? ? UR ABNORM UA-RBC >100 [hpf] 0-2 [hpf] Final No rth AL [facility] L ab (Internal) : [address] ? ? UR ? UA-bact rare [hpf] none seen Final N rishi ochoa [hpf] [facility] L ab (Internal) : [address] ? ? UR ? UA-epit rare [hpf] none seen Final N rishi zamora [hpf] [facility] L ab (Internal) : [address] ? ? UR ? UA-mucu none seen none seen Final No rth s [hpf] [hpf] [facility] L ab (Internal) : [address] 08/07/2020 Culture ([place] UR ? Final microbiolog ? Final North Count), Urine y results [facility] L ab (Internal) : [address] 08/06/2020 CBC W/ Auto BLD High Wbc 10.1 5.0-10.0 Final [place] Diff 10*3/uL 10*3/uL [facility] L ab (Internal) : [address] ? ? BLD Low Rbc 2.97 4.10-5.30 Final North 10*6/uL 10*6/uL [facility] L ab (Internal) : [address] ? ? BLD Low Hgb 7.3 g/dL 12.0-16.0 Final North g/dL [facility] L ab (Internal) : [address] ? ? BLD Low Hct 24.7 % 37.0-47.0 Final [place] % [facility] L ab (Internal) : [address] ? ? BLD ? Mcv 83.2 fL 80.0-96.0 Final [place] fL [facility] L ab (Internal) : [address] ? ? BLD Low Mch 24.6 pg 26.0-32.0 Final [place] pg [facility] L ab (Internal) : [address] ? ? BLD Low Mchc 29.6 g/dL 31.0-35.0 Final Nort h g/dL [facility] L ab (Internal) : [address] ? ? BLD High Rdw 21.9 % 11.5-14.5 Final [facility] L ab (Internal) : [address] ? ? BLD ? Plt 330 10*3/uL 130-450 Final Nort h 10*3/uL [facility] L ab (Internal) : [address] ? ? BLD ? Anc 7.48 ? Final [place] 10*3/uL [facility] L ab (Internal) : [address] ? ? BLD High Nlr 4.23 0.00-3.20 Final [facility] L ab (Internal) : [address] ? ? BLD ? Neutro 74.2 % 40.0-75.0 Final [facility] L ab (Internal) : [address] ? ? BLD Low Lymph 17.5 % 20.0-50.0 Final [facility] L ab (Internal) : [address] ? ? BLD ? [place] 7.1 % 2.0-10.0 Final [facility] L ab (Internal) : [address] ? ? BLD Low Eos 0.2 % 1.0-6.0 % Final [facility] L ab (Internal) : [address] ? ? BLD ? Baso 0.4 % 0.0-1.0 % Final [facility] L ab (Internal) : [address] ? ? BLD ? Ig 0.6 % 0.0-0.9 % Final [facility] L ab (Internal) : [address] 08/06/2020 Ldh, Serum or S Low Ldh 244 U/L 313-618 Viktoriya l [place] Plasma U/L [facility] L ab (Internal) : [address] 08/06/2020 CMP, Serum or S High g/r 111 mg/dL 74-106 Fin al [place] Plasma mg/dL [facility] L ab (Internal) : [address] ? ? S High Bun 19 mg/dL 7-17 Final [place] mg/dL [facility] L ab (Internal) : [address] ? ? S ? Crea 0.60 mg/dL 0.52-1.04 Final Nor th mg/dL [facility] L ab (Internal) : [address] ? ? S Low Ca 8.1 mg/dL 8.4-10.2 Final [facility] mg/dL [facility] L ab (Internal) : [address] ? ? S Low Na 135 mmol/L 137-145 Final [place] mmol/L [facility] L ab (Internal) : [address] ? ? S ? K 4.4 mmol/L 3.5-5.1 Final [facility] mmol/L [facility] L ab (Internal) : [address] ? ? S ? Cl 100 mmol/L 98-107 Final [place] mmol/L [facility] L ab (Internal) : [address] ? ? S ? Tco2 29.0 mmol/L 22.0-30.0 Final No rth mmol/L [facility] L ab (Internal) : [address] ? ? S Low Tp 5.7 g/dL 6.3-8.2 Final [facility] g/dL [facility] L ab (Internal) : [address] ? ? S Low Alb 2.5 g/dL 3.5-5.0 Final [place] g/dL [facility] L ab (Internal) : [address] ? ? S ? Tbil 0.5 mg/dL 0.2-1.3 Final [place] mg/dL [facility] L ab (Internal) : [address] ? ? S ? Alp 95 U/L 38-126 Final North U/L [facility] L ab (Internal) : [address] ? ? S ? Alt 16 U/L 9-52 U/L Final [place] (Sgpt) [facility] L ab (Internal) : [address] ? ? S ? Ast 30 U/L 14-36 U/L Final [place] (Sgot) [facility] L ab (Internal) : [address] 08/06/2020 RBC Morphology, BLD ? Aniso moderate ? Fi nal [place] Blood [facility] L ab (Internal) : [address] ? ? BLD ? Hypo occasional ? Final [facility] L ab (Internal) : [address] ? ? BLD ? Poik occasional ? Final [place] [hpf] [facility] L ab (Internal) : [address] ? ? BLD ? Schist rare ? Final [facility] L ab (Internal) : [address] 08/05/2020 CBC W/ Auto BLD High Wbc 15.2 5.0-10.0 Final [place] Diff 10*3/uL 10*3/uL [facility] L ab (Internal) : [address] ? ? BLD Low Rbc 3.28 4.10-5.30 Final [place] 10*6/uL 10*6/uL [facility] L ab (Internal) : [address] ? ? BLD Low Hgb 8.0 g/dL 12.0-16.0 Final [place] g/dL [facility] L ab (Internal) : [address] ? ? BLD Low Hct 27.5 % 37.0-47.0 Final [facility] L ab (Internal) : [address] ? ? BLD ? Mcv 83.8 fL 80.0-96.0 Final [facility] L ab (Internal) : [address] ? ? BLD Low Mch 24.4 pg 26.0-32.0 Final [facility] L ab (Internal) : [address] ? ? BLD Low Mchc 29.1 g/dL 31.0-35.0 [facility] L ab (Internal) : [address] ? ? BLD High Rdw 22.2 % 11.5-14.5 Final [facility] L ab (Internal) : [address] ? ? BLD ? Plt 407 10*3/uL 130-450 Final Nort h 10*3/uL [facility] L ab (Internal) : [address] 08/05/2020 CMP, Serum or S High g/r 138 mg/dL 74-106 Fin al [place] Plasma mg/dL [facility] L ab (Internal) : [address] ? ? S High Bun 20 mg/dL 7-17 Final North mg/dL [facility] L ab (Internal) : [address] ? ? S ? Crea 0.60 mg/dL 0.52-1.04 Final Nor th mg/dL [facility] L ab (Internal) : [address] ? ? S Low Ca 8.3 mg/dL 8.4-10.2 Final North mg/dL [facility] L ab (Internal) : [address] ? ? S Low Na 134 mmol/L 137-145 Final North mmol/L [facility] L ab (Internal) : [address] ? ? S ? K 4.4 mmol/L 3.5-5.1 Final [place] mmol/L [facility] L ab (Internal) : [address] ? ? S Low Cl 97 mmol/L 98-107 Final [place] mmol/L [facility] L ab (Internal) : [address] ? ? S ? Tco2 29.0 mmol/L 22.0-30.0 Final No rth mmol/L [facility] L ab (Internal) : [address] ? ? S Low Tp 5.9 g/dL 6.3-8.2 Final [place] g/dL [facility] L ab (Internal) : [address] ? ? S Low Alb 2.6 g/dL 3.5-5.0 Final [place] g/dL [facility] L ab (Internal) : [address] ? ? S ? Tbil 0.5 mg/dL 0.2-1.3 Final [place] mg/dL [facility] L ab (Internal) : [address] ? ? S ? Alp 106 U/L 38-126 Final [place] U/L [facility] L ab (Internal) : [address] ? ? S ? Alt 20 U/L 9-52 U/L Final [place] (Sgpt) [facility] L ab (Internal) : [address] ? ? S ? Ast 36 U/L 14-36 U/L Final [place] (Sgot) [facility] L ab (Internal) : [address] 08/05/2020 Differential, BLD High Polys 86 % 40-75 % Final [facility], Blood Cou [facility] Hospital L ab (Internal) : [address] ? ? BLD ? Bands 0 % 0-5 % Final [facility] L ab (Internal) : [address] ? ? BLD Low Lymphs 13 % 20-50 % Final [facility] L ab (Internal) : [address] ? ? BLD Low [place] 0 % 2-10 % Final [facility] L ab (Internal) : [address] t ? ? BLD ? Eos 0 % 0-6 % Final [facility] ab (Internal) : [address] t ? ? BLD ? Baso 1 % 0-1 % Final [facility] ab (Internal) : [address] t ? ? BLD ? Atyp 0 % ? Final [facility] ab (Internal) : [address] t ? ? BLD ABNORM Plts, elevated adequate Final [facility] : [address] t ? ? BLD ABNORM RBC abnormal normal Final [facility] ab (Internal) : [address] t ? ? BLD ? Aniso large ? Final [facility] ab (Internal) : [address] t ? ? BLD ? Hypo occasional ? Final [facility] L ab (Internal) : [address] t ? ? BLD ? Poik occasional ? Final [place] [hpf] [facility] L ab (Internal) : [address] 08/05/2020 Neutrophil BLD ? Anc-man 13.07 ? Final [place] Count, Absolute ual 10*3/uL [place] (Anc), Blood Hosp ital Lab (Internal) : [address] t 08/05/2020 Nlr-manual BLD High Nlr - 6.62 0.00-3.20 Final [facility] L ab (Internal) : [address] 08/05/2020 SARS CoV 2 RNA FLUID ? Final microbiolog ? Final [place] (COVID-19), QL, y results [place] trailer steerer-PCR, Hospital Lab Respiratory (Inte rnal): Specimen [address] 08/05/2020 Lipase, Serum S ? Lip 115 U/L 23-300 Final [place] or Plasma U/L [facility] ab (Internal) : [address] 08/05/2020 Cell Count, MISC ? Source, paracentesi ? F inal [place] Body Fluid Bf s fluid Count [facility] (Internal) : [address], [place] t ? ? MISC ? Color, bloody ? Final [facility] (Internal) : [address] ? ? MISC ? Clarity hazy ? Final [facility] (Internal) : [address], [place] t ? ? MISC ? WBC, Bf 30.22 ? Final [place] (Auto) 10*3/uL [facility] ([facility] : [address] t ? ? MISC ? RBC, Bf 0.02 ? Final [place] (Auto) 10*6/uL [facility] ([facility] : [address] t ? ? MISC ? Polys, 86 % ? Final [facility] (Auto) [facility] (Internal) : [address] t ? ? MISC ? Lymphs, 10 % ? Final [facility](auto[facility] ([facility] : [address] t ? ? MISC ? Monocyt 4 % ? Final [place] e, [facility] (Auto) [facility] (Internal) : [address] t ? ? MISC ? Eos, Bf 0 % ? Final [place] (Auto) [facility] ab (Internal) : [address] t ? ? MISC ? Baso, 0 % ? Final [facility] (Auto) [facility] (Internal) : [address] t 08/05/2020 Bacteria N/A ? Final microbiolog ? Final [place] Identification, y results [facility] Unspecified Hospi christie Lab Specimen (Interna l): [address] t 08/05/2020 Go-fahc MISC ? [id number] see below ? Final No rth 08/06/2020 Countr y 08:46 pm Hospital Lab (Internal) : [address] 08/05/2020 Cytology, TISS ? Report (see below) ? Viktoriya de la cruz [place] Non-gynecologic C ountry al, Unspecified H ospital Lab Specimen (Interna l): [address] 07/30/2020 CBC W/ Auto BLD High Wbc 10.1 5.0-10.0 Final [place] Diff 10*3/uL 10*3/uL [facility] L ab (Internal) : [address] t ? ? BLD Low Rbc 3.18 4.10-5.30 Final [place] 10*6/uL 10*6/uL [facility] L ab (Internal) : [address] t ? ? BLD Low Hgb 7.7 g/dL 12.0-16.0 Final [place] g/dL [facility] L ab (Internal) : [address] t ? ? BLD Low Hct 25.9 % 37.0-47.0 Final [facility] L ab (Internal) : [address] t ? ? BLD ? Mcv 81.4 fL 80.0-96.0 Final [facility] L ab (Internal) : [address] t ? ? BLD Low Mch 24.2 pg 26.0-32.0 Final [facility] L ab (Internal) : [address] t ? ? BLD Low Mchc 29.7 g/dL 31.0-35.0 Final Nort h g/dL [facility] L ab (Internal) : [address] t ? ? BLD High Rdw 21.2 % 11.5-14.5 Final [facility] L ab (Internal) : [address] t ? ? BLD ? Plt 330 10*3/uL 130-450 Final Nort h 10*3/uL [facility] L ab (Internal) : [address] t ? ? BLD ? Anc 8.06 ? Final [place] 10*3/uL [facility] L ab (Internal) : [address] t ? ? BLD High Nlr 5.97 0.00-3.20 Final [facility] L ab (Internal) : [address] t ? ? BLD High Neutro 79.8 % 40.0-75.0 Final [facility] L ab (Internal) : [address] t ? ? BLD Low Lymph 13.4 % 20.0-50.0 Final [facility] Hospital L ab (Internal) : [address] t ? ? BLD ? [place] 5.4 % 2.0-10.0 Final [facility] L ab (Internal) : [address] t ? ? BLD Low Eos 0.5 % 1.0-6.0 % Final [facility] L ab (Internal) : [address] t ? ? BLD ? Baso 0.3 % 0.0-1.0 % Final [facility] L ab (Internal) : [address] t ? ? BLD ? Ig 0.6 % 0.0-0.9 % Final [facility] L ab (Internal) : [address] t 07/30/2020 BMP, Serum or S Low g/r 64 mg/dL 74-106 Viktoriya l [place] Plasma mg/dL [facility] L ab (Internal) : [address] t ? ? S ? Bun 7 mg/dL 7-17 Final [place] mg/dL [facility] L ab (Internal) : [address] t ? ? S Low Crea 0.50 mg/dL 0.52-1.04 Final [facility] th mg/dL [facility] L ab (Internal) : [address] t ? ? S Low Ca 7.8 mg/dL 8.4-10.2 Final [facility] mg/dL [facility] L ab (Internal) : [address] t ? ? S Low Na 134 mmol/L 137-145 Final [place] mmol/L [facility] L ab (Internal) : [address] t ? ? S Low K 3.3 mmol/L 3.5-5.1 Final [place] mmol/L [facility] L ab (Internal) : [address] t ? ? S ? Cl 101 mmol/L 98-107 Final [place] mmol/L [facility] L ab (Internal) : [address] t ? ? S ? Tco2 26.0 mmol/L 22.0-30.0 Final No rth mmol/L [facility] L ab (Internal) : [address] t 07/30/2020 RBC Morphology, BLD ? Aniso moderate ? Fi nal [facility] L ab (Internal) : [address] t ? ? BLD ? Teardro rare ? Final [facility] L ab (Internal) : [address] t ? ? BLD ? Oval rare ? Final [facility] L ab (Internal) : [address] 07/29/2020 CBC W/ Auto BLD High Wbc 13.4 5.0-10.0 Final [place] Diff 10*3/uL 10*3/uL [facility] L ab (Internal) : [address] t ? ? BLD Low Rbc 3.33 4.10-5.30 Final [place] 10*6/uL 10*6/uL [facility] L ab (Internal) : [address] t ? ? BLD Low Hgb 8.0 g/dL 12.0-16.0 Final [place] g/dL [facility] L ab (Internal) : [address] t ? ? BLD Low Hct 27.4 % 37.0-47.0 Final [facility] L ab (Internal) : [address] t ? ? BLD ? Mcv 82.3 fL 80.0-96.0 Final [facility] L ab (Internal) : [address] t ? ? BLD Low Mch 24.0 pg 26.0-32.0 Final [facility] L ab (Internal) : [address] t ? ? BLD Low Mchc 29.2 g/dL 31.0-35.0 Final Nort h g/dL [facility] L ab (Internal) : [address] t ? ? BLD High Rdw 21.7 % 11.5-14.5 Final [facility] L ab (Internal) : [address] t ? ? BLD ? Plt 354 10*3/uL 130-450 Final Nort h 10*3/uL [facility] L ab (Internal) : [address] t ? ? BLD ? Anc 9.90 ? Final [place] 10*3/uL [facility] L ab (Internal) : [address] t ? ? BLD High Nlr 3.87 0.00-3.20 Final [facility] L ab (Internal) : [address] t ? ? BLD ? Neutro 74.2 % 40.0-75.0 Final [facility] L ab (Internal) : [address] t ? ? BLD Low Lymph 19.2 % 20.0-50.0 Final [facility] L ab (Internal) : [address] t ? ? BLD ? [place] 5.8 % 2.0-10.0 Final [facility] L ab (Internal) : [address] t ? ? BLD Low Eos 0.2 % 1.0-6.0 % Final [facility] L ab (Internal) : [address] t ? ? BLD ? Baso 0.1 % 0.0-1.0 % Final [facility] L ab (Internal) : [address] t ? ? BLD ? Ig 0.5 % 0.0-0.9 % Final [facility] L ab (Internal) : [address] t 07/29/2020 BMP, Serum or S ? g/r 86 mg/dL 74-106 Viktoriya l [place] Plasma mg/dL [facility] L ab (Internal) : [address] t ? ? S ? Bun 9 mg/dL 7-17 Final [place] mg/dL [facility] L ab (Internal) : [address] t ? ? S Low Crea 0.50 mg/dL 0.52-1.04 Final Nor th mg/dL [facility] L ab (Internal) : [address] t ? ? S Low Ca 8.2 mg/dL 8.4-10.2 Final [place] mg/dL [facility] L ab (Internal) : [address] t ? ? S Low Na 134 mmol/L 137-145 Final [place] mmol/L [facility] L ab (Internal) : [address] t ? ? S ? K 3.7 mmol/L 3.5-5.1 Final [place] mmol/L [facility] L ab (Internal) : [address] t ? ? S ? Cl 101 mmol/L 98-107 Final [place] mmol/L [facility] L ab (Internal) : [address] t ? ? S ? Tco2 27.0 mmol/L 22.0-30.0 Final No rth mmol/L [facility] L ab (Internal) : [address] 07/29/2020 RBC Morphology, BLD ? Aniso moderate ? Fi nal [facility] L ab (Internal) : [address] t ? ? BLD ? Polychr occasional ? Final Nort h om [facility] L ab (Internal) : [address] t ? ? BLD ? Schist occasional ? Final [facility] L ab (Internal) : [address] 07/28/2020 CBC W/ Auto BLD High Wbc 16.2 5.0-10.0 Final [place] Diff 10*3/uL 10*3/uL [facility] L ab (Internal) : [address] t ? ? BLD Low Rbc 3.55 4.10-5.30 Final [place] 10*6/uL 10*6/uL [facility] L ab (Internal) : [address] t ? ? BLD Low Hgb 8.6 g/dL 12.0-16.0 Final [place] g/dL [facility] L ab (Internal) : [address] t ? ? BLD Low Hct 29.2 % 37.0-47.0 Final [facility] L ab (Internal) : [address] t ? ? BLD ? Mcv 82.3 fL 80.0-96.0 Final [facility] L ab (Internal) : [address] t ? ? BLD Low Mch 24.2 pg 26.0-32.0 Final [facility] L ab (Internal) : [address] t ? ? BLD Low Mchc 29.5 g/dL 31.0-35.0 Final Nort h g/dL [facility] L ab (Internal) : [address] ? ? BLD High Rdw 21.6 % 11.5-14.5 Final [facility] L ab (Internal) : [address] ? ? BLD ? Plt 387 10*3/uL 130-450 Final Nort h 10*3/uL [facility] L ab (Internal) : [address] ? ? BLD ? Anc 12.58 ? Final [place] 10*3/uL [facility] L ab (Internal) : [address] ? ? BLD High Nlr 4.97 0.00-3.20 Final [facility] L ab (Internal) : [address] t ? ? BLD High Neutro 77.5 % 40.0-75.0 Final [facility] L ab (Internal) : [address] t ? ? BLD Low Lymph 15.6 % 20.0-50.0 Final [facility] L ab (Internal) : [address] t ? ? BLD ? [place] 6.4 % 2.0-10.0 Final [facility] L ab (Internal) : [address] ? ? BLD Low Eos 0.0 % 1.0-6.0 % Final [facility] L ab (Internal) : [address] t ? ? BLD ? Baso 0.1 % 0.0-1.0 % Final [facility] L ab (Internal) : [address] t ? ? BLD ? Ig 0.4 % 0.0-0.9 % Final [facility] L ab (Internal) : [address] t 07/28/2020 BMP, Serum or S High g/r 208 mg/dL 74-106 Fin al [place] Plasma mg/dL [facility] L ab (Internal) : [address] t ? ? S ? Bun 11 mg/dL 7-17 Final [place] mg/dL [facility] L ab (Internal) : [address] t ? ? S Low Crea 0.50 mg/dL 0.52-1.04 Final [facility] th mg/dL [facility] L ab (Internal) : [address] t ? ? S Low Ca 8.2 mg/dL 8.4-10.2 Final [place] mg/dL [facility] L ab (Internal) : [address] t ? ? S Low Na 134 mmol/L 137-145 Final [place] mmol/L [facility] L ab (Internal) : [address] t ? ? S ? K 4.3 mmol/L 3.5-5.1 Final [place] mmol/L [facility] L ab (Internal) : [address] t ? ? S ? Cl 103 mmol/L 98-107 Final [place] mmol/L [facility] L ab (Internal) : [address] t ? ? S ? Tco2 23.0 mmol/L 22.0-30.0 Final No rth mmol/L [facility] L ab (Internal) : [address] 07/28/2020 RBC Morphology, BLD ? Aniso moderate ? Fi nal [facility] L ab (Internal) : [address] ? ? BLD ? Polychr small ? Final [facility] L ab (Internal) : [address] 07/28/2020 Pathology Study TISS ? Report (see below) ? Final [facility] L ab (Internal) : [address] 07/27/2020 CBC W/ Auto BLD High Wbc 13.0 5.0-10.0 Final [place] Diff 10*3/uL 10*3/uL [facility] L ab (Internal) : [address] ? ? BLD Low Rbc 3.66 4.10-5.30 Final [place] 10*6/uL 10*6/uL [facility] L ab (Internal) : [address] ? ? BLD Low Hgb 8.4 g/dL 12.0-16.0 Final [place] g/dL [facility] L ab (Internal) : [address] ? ? BLD Low Hct 29.5 % 37.0-47.0 Final [facility] L ab (Internal) : [address] ? ? BLD ? Mcv 80.6 fL 80.0-96.0 Final [facility] L ab (Internal) : [address] ? ? BLD Low Mch 23.0 pg 26.0-32.0 Final [facility] L ab (Internal) : [address] ? ? BLD Low Mchc 28.5 g/dL 31.0-35.0 [facility] L ab (Internal) : [address] t ? ? BLD High Rdw 24.3 % 11.5-14.5 Final [facility] L ab (Internal) : [address] t ? ? BLD High Plt 718 10*3/uL 130-450 Final Nort h 10*3/uL [facility] L ab (Internal) : [address] 07/27/2020 Differential, BLD High Polys 90 % 40-75 % Final [facility] Blood [facility] ab (Internal) : [address] t ? ? BLD ? Bands 0 % 0-5 % Final [facility] L ab (Internal) : [address] ? ? BLD Low Lymphs 9 % 20-50 % Final [facility] L ab (Internal) : [address] ? ? BLD Low [place] 1 % 2-10 % Final [facility] L ab (Internal) : [address] ? ? BLD ? Eos 0 % 0-6 % Final [facility] L ab (Internal) : [address] ? ? BLD ? Baso 0 % 0-1 % Final [facility] L ab (Internal) : [address] ? ? BLD ? Atyp 0 % ? Final [facility] L ab (Internal) : [address] ? ? BLD ABNORM Plts, elevated adequate Final [facility] L ab (Internal) : [address] ? ? BLD ABNORM RBC abnormal normal Final [facility] L ab (Internal) : [address] t ? ? BLD ? Aniso large ? Final [facility] L ab (Internal) : [address] ? ? BLD ? Hypo small ? Final [facility] L ab (Internal) : [address] ? ? BLD ? Poik occasional ? Final [place] [hpf] [facility] L ab (Internal) : [address] 07/27/2020 Neutrophil BLD ? Anc-man 11.67 ? Final [place] Count, Absolute ual 10*3/uL [place] (Anc), Blood Hosp ital Lab (Internal) : [address] 07/27/2020 Nlr-manual BLD High Nlr - 10.00 0.00-3.20 Final [facility] L ab (Internal) : [address] 07/27/2020 Carcinoembryoni S ? Carcino 64.8 NG/mL see n ote Final [place] c Ag, Quant, embryoni NG/mL Co untry Serum or Plasma c H ospital Lab Antigen (Internal ): [address] 07/26/2020 CBC W/ Auto BLD High Wbc 12.3 5.0-10.0 Final [place] Diff 10*3/uL 10*3/uL [facility] L ab (Internal) : [address] ? ? BLD ? Rbc 4.12 4.10-5.30 Final [place] 10*6/uL 10*6/uL [facility] L ab (Internal) : [address] t ? ? BLD Low Hgb 9.3 g/dL 12.0-16.0 Final [place] g/dL [facility] L ab (Internal) : [address] t ? ? BLD Low Hct 33.6 % 37.0-47.0 Final [facility] L ab (Internal) : [address] t ? ? BLD ? Mcv 81.6 fL 80.0-96.0 Final [facility] L ab (Internal) : [address] t ? ? BLD Low Mch 22.6 pg 26.0-32.0 Final [facility] L ab (Internal) : [address] t ? ? BLD Low Mchc 27.7 g/dL 31.0-35.0 Final Nort h g/dL [facility] L ab (Internal) : [address] t ? ? BLD High Rdw 24.4 % 11.5-14.5 Final [facility] L ab (Internal) : [address] [place] ? ? BLD High Plt 572 10*3/uL 130-450 Final Nort h 10*3/uL [facility] L ab (Internal) : [address], [place] ? ? BLD ? Anc 7.53 ? Final [place] 10*3/uL [facility] L ab (Internal) : [address] ? ? BLD ? Nlr 2.02 0.00-3.20 Final [facility] L ab (Internal) : [address] ? ? BLD ? Neutro 61.4 % 40.0-75.0 Final [facility] L ab (Internal) : [address] ? ? BLD ? Lymph 30.4 % 20.0-50.0 Final [facility] L ab (Internal) : [address] ? ? BLD ? [place] 6.1 % 2.0-10.0 Final [facility] L ab (Internal) : [address] ? ? BLD Low Eos 0.9 % 1.0-6.0 % Final [facility] L ab (Internal) : [address] ? ? BLD ? Baso 0.6 % 0.0-1.0 % Final [facility] L ab (Internal) : [address], [place] ? ? BLD ? Ig 0.6 % 0.0-0.9 % Final [facility] L ab (Internal) : [address] [place] 07/26/2020 RBC Morphology, BLD ? Aniso moderate ? Fi nal [facility] L ab (Internal) : [address] ? ? BLD ? Hypo small ? Final [facility] L ab (Internal) : [address] ? ? BLD ? Poik occasional ? Final [place] [hpf] [facility] L ab (Internal) : [address] 07/26/2020 Type + Screen, BLD ? Abo O ? Final [facility] L ab (Internal) : [address] ? ? BLD ? Rh positive ? Final [facility] L ab (Internal) : [address] t ? ? BLD ? Ab Scrn negative negative Final Nort h [facility] L ab (Internal) : [address] 07/26/2020 Crossmatch, BLD ? X-match complete ? Viktoriya de la cruz [facility], # , 1 U [facility] L ab (Internal) : [address] 07/16/2020 CBC W/ Auto BLD High Wbc 13.2 5.0-10.0 Final [place] Diff 10*3/uL 10*3/uL [facility] L ab (Internal) : [address] t ? ? BLD ? Rbc 4.88 4.10-5.30 Final [place] 10*6/uL 10*6/uL [facility] L ab (Internal) : [address] t ? ? BLD Low Hgb 10.7 g/dL 12.0-16.0 [facility] L ab (Internal) : [address] t ? ? BLD ? Hct 38.5 % 37.0-47.0 Final [facility] L ab (Internal) : [address] t ? ? BLD Low Mcv 78.9 fL 80.0-96.0 Final [facility] L ab (Internal) : [address] t ? ? BLD Low Mch 21.9 pg 26.0-32.0 Final [facility] L ab (Internal) : [address] t ? ? BLD Low Mchc 27.8 g/dL 31.0-35.0 [facility] L ab (Internal) : [address] t ? ? BLD High Rdw 24.7 % 11.5-14.5 Final [facility] L ab (Internal) : [address] ? ? BLD ? Plt 361 10*3/uL 130-450 Final Nort h 10*3/uL [facility] L ab (Internal) : [address] ? ? BLD ? Anc 9.17 ? Final [place] 10*3/uL [facility] L ab (Internal) : [address], [place] ? ? BLD High Nlr 3.25 0.00-3.20 Final [facility] L ab (Internal) : [address] ? ? BLD ? Neutro 69.4 % 40.0-75.0 Final [facility] L ab (Internal) : [address] ? ? BLD ? Lymph 21.4 % 20.0-50.0 Final [facility] L ab (Internal) : [address] ? ? BLD ? [place] 7.0 % 2.0-10.0 Final [facility] L ab (Internal) : [address], [place] ? ? BLD Low Eos 0.6 % 1.0-6.0 % Final [facility] L ab (Internal) : [address] ? ? BLD ? Baso 0.4 % 0.0-1.0 % Final [facility] L ab (Internal) : [address] ? ? BLD High Ig 1.2 % 0.0-0.9 % Final [facility] ab (Internal) : [address] t 07/16/2020 RBC Morphology, BLD ? Aniso small ? Viktoriya l [facility] L ab (Internal) : [address] t ? ? BLD ? Hypo small ? Final [facility] L ab (Internal) : [address] t ? ? BLD ? Micro occasional ? Final [facility] L ab (Internal) : [address] t ? ? BLD ? Poik occasional ? Final [place] [facility] L ab (Internal) : [address] 07/13/2020 Pathology Study TISS ? Report (see below) ? Final [facility] ab (Internal) : [address] 07/12/2020 Cbc BLD ? Wbc 9.3 10*3/uL 5.0-10.0 Final [place] 10*3/uL [facility] L ab (Internal) : [address] ? ? BLD Low Rbc 3.76 4.10-5.30 Final [place] 10*6/uL 10*6/uL [facility] L ab (Internal) : [address] ? ? BLD Low Hgb 7.7 g/dL 12.0-16.0 Final [place] g/dL [facility] L ab (Internal) : [address] ? ? BLD Low Hct 28.2 % 37.0-47.0 Final [facility] Hospital L ab (Internal) : [address] ? ? BLD Low Mcv 75.0 fL 80.0-96.0 Final [facility] Hospital L ab (Internal) : [address] ? ? BLD Low Mch 20.5 pg 26.0-32.0 Final [facility] L ab (Internal) : [address] ? ? BLD Low Mchc 27.3 g/dL 31.0-35.0 Final Nort h g/dL [facility] L ab (Internal) : [address] ? ? BLD High Rdw 23.0 % 11.5-14.5 Final [facility] Hospital L ab (Internal) : [address] ? ? BLD ? Plt 324 10*3/uL 130-450 Final Nort h 10*3/uL [facility] L ab (Internal) : [address] ? ? BLD ? Anc 6.37 ? Final [place] 10*3/uL [facility] L ab (Internal) : [address] 07/12/2020 Cbc BLD High Wbc 10.1 5.0-10.0 Final Nort h 10*3/uL 10*3/uL [facility] L ab (Internal) : [address] ? ? BLD Low Rbc 3.99 4.10-5.30 Final [place] 10*6/uL 10*6/uL [facility] L ab (Internal) : [address] t ? ? BLD Low Hgb 8.8 g/dL 12.0-16.0 Final North g/dL [facility] L ab (Internal) : [address] t ? ? BLD Low Hct 30.7 % 37.0-47.0 Final [facility] L ab (Internal) : [address] t ? ? BLD Low Mcv 76.9 fL 80.0-96.0 Final [facility] L ab (Internal) : [address] t ? ? BLD Low Mch 22.1 pg 26.0-32.0 Final [facility] L ab (Internal) : [address] t ? ? BLD Low Mchc 28.7 g/dL 31.0-35.0 [facility] L [facility] (Internal) : [address] t ? ? BLD High Rdw 23.0 % 11.5-14.5 Final [facility] L ab (Internal) : [address] t ? ? BLD ? Plt 315 10*3/uL 130-450 Final Nort h 10*3/uL [facility] L [facility] (Internal) : [address] t ? ? BLD ? Anc 6.28 ? Final [place] 10*3/uL [facility] L ab (Internal) : [address] t 07/10/2020 CBC W/ Auto BLD ? Wbc 9.5 10*3/uL 5.0-10.0 F inal [place] Diff 10*3/uL [facility] L ab (Internal) : [address] t ? ? BLD Low Rbc 2.57 4.10-5.30 Final [place] 10*6/uL 10*6/uL [facility] L ab (Internal) : [address] t ? ? BLD CRITIC Hgb 4.1 g/dL 12.0-16.0 Final [facility] LOW g/dL [facility] L ab (Internal) : [address] t ? ? BLD CRITIC Hct 17.3 % 37.0-47.0 Final [facility] LOW % [facility] L ab (Internal) : [address] t ? ? BLD Low Mcv 67.3 fL 80.0-96.0 Final [facility] L ab (Internal) : [address] t ? ? BLD Low Mch 16.0 pg 26.0-32.0 Final [facility] L ab (Internal) : [address] t ? ? BLD Low Mchc 23.7 g/dL 31.0-35.0 Final Nort h g/dL [facility] L ab (Internal) : [address] t ? ? BLD High Rdw 20.9 % 11.5-14.5 Final [facility] L ab (Internal) : [address] t ? ? BLD ? Plt 432 10*3/uL 130-450 Final Nort h 10*3/uL [facility] L ab (Internal) : [address] t ? ? BLD ? Anc 6.80 ? Final [place] 10*3/uL [facility] L ab (Internal) : [address] ? ? BLD High Nlr 4.42 0.00-3.20 Final [facility] L ab (Internal) : [address] t ? ? BLD ? Neutro 71.8 % 40.0-75.0 Final [facility] L ab (Internal) : [address] t ? ? BLD Low Lymph 16.2 % 20.0-50.0 Final [facility] L ab (Internal) : [address] ? ? BLD High [place] 11.0 % 2.0-10.0 Final [facility] L ab (Internal) : [address] t ? ? BLD Low Eos 0.1 % 1.0-6.0 % Final [facility] L ab (Internal) : [address] ? ? BLD ? Baso 0.2 % 0.0-1.0 % Final [facility] L ab (Internal) : [address] t ? ? BLD ? Ig 0.7 % 0.0-0.9 % Final [facility] L ab (Internal) : [address] t 07/10/2020 CMP, Serum or S High g/r 154 mg/dL 74-106 Fin al North Plasma mg/dL [facility] L ab (Internal) : [address] ? ? S High Bun 22 mg/dL 7-17 Final [place] mg/dL [facility] L [facility] (Internal) : [address] t ? ? S ? Crea 0.80 mg/dL 0.52-1.04 Final Nor th mg/dL [facility] L ab (Internal) : [address] t ? ? S ? Ca 8.4 mg/dL 8.4-10.2 Final North mg/dL [facility] L ab (Internal) : [address] t ? ? S Low Na 134 mmol/L 137-145 Final [place] mmol/L [facility] L ab (Internal) : [address] t ? ? S Low K 3.4 mmol/L 3.5-5.1 Final [place] mmol/L [facility] L ab (Internal) : [address] t ? ? S ? Cl 101 mmol/L 98-107 Final [place] mmol/L [facility] L ab (Internal) : [address] t ? ? S ? Tco2 23.0 mmol/L 22.0-30.0 Final No rth mmol/L [facility] L ab (Internal) : [address] t ? ? S ? Tp 6.7 g/dL 6.3-8.2 Final [place] g/dL [facility] L ab (Internal) : [address] ? ? S Low Alb 3.0 g/dL 3.5-5.0 Final [place] g/dL [facility] L ab (Internal) : [address] t ? ? S ? Tbil 0.3 mg/dL 0.2-1.3 Final [place] mg/dL [facility] L ab (Internal) : [address] t ? ? S ? Alp 112 U/L 38-126 Final [place] U/L [facility] L ab (Internal) : [address] ? ? S ? Alt <10 U/L 9-52 U/L Final [place] (Sgpt) [facility] L ab (Internal) : [address] ? ? S ? Ast 24 U/L 14-36 U/L Final [place] (Sgot) [facility] L ab (Internal) : [address] t 07/10/2020 Lipase, Serum S ? Lip 96 U/L 23-300 Final [place] or Plasma U/L [facility] L ab (Internal) : [address] 07/10/2020 RBC Morphology, BLD ? Aniso moderate ? Fi nal [facility] L ab (Internal) : [address] ? ? BLD ? Hypo small ? Final [facility] L ab (Internal) : [address] ? ? BLD ? Micro moderate ? Final [facility] L ab (Internal) : [address] ? ? BLD ? Teardro rare ? Final [facility] L ab (Internal) : [address] ? ? BLD ? Oval occasional ? [facility] ab (Internal) : [address] 07/10/2020 TSH, Serum or S ? Tsh 2.27 0.47-4.68 Fin dino [place] Plasma u[IU]/mL u[IU]/mL [facility] L ab (Internal) : [address] 07/10/2020 Type + Screen, BLD ? Abo O ? Final [facility] L ab (Internal) : [address] t ? ? BLD ? Rh positive ? [facility] ab (Internal) : [address] ? ? BLD ? Ab Scrn negative negative Final [facility] L ab (Internal) : [address] 07/10/2020 Crossmatch, BLD ? X-match complete ? Viktoriya Vázquez [facility], # , 2 U [facility] L ab (Internal) : [address] 07/10/2020 Urinalysis, UR ? UA-colo yellow pale [facility] Dipstick, r yellow [facility] (Internal) : [address] ? ? UR ? UA-appe clear clear Final [facility] L ab (Internal) : [address] ? ? UR ? UA-spec 1.010 1.003-1.[address] L ab (Internal) : [address] ? ? UR ? UA-pH 6.5 [pH] 4.6-8.0 Final [place] [pH] [facility] L ab (Internal) : [address] ? ? UR ? UA-leuk negative negative Final Nort h Est [facility] L ab (Internal) : [address] ? ? UR ? UA-nitr negative negative Final Nort h ite [facility] L ab (Internal) : [address] ? ? UR ? UA-prot negative negative Final Nort h [facility] L ab (Internal) : [address] ? ? UR ? UA-gluc negative negative Final Nort h [facility] L ab (Internal) : [address] ? ? UR ? UA-keto negative negative Final Nort h ne [facility] L ab (Internal) : [address] [place] [address] ? ? UR ? UA-urob normal normal Final [facility] L ab (Internal) : [address] ? ? UR ? UA-bili negative negative Final Nort h [facility] ab (Internal) : [address] ? ? UR ? UA-bloo negative negative Final Nort h d [facility] ab (Internal) : [address] t 07/10/2020 Cbc BLD ? Wbc 9.4 10*3/uL 5.0-10.0 Final [place] 10*3/uL [facility] L ab (Internal) : [address] ? ? BLD Low Rbc 3.29 4.10-5.30 Final [place] 10*6/uL 10*6/uL [facility] L ab (Internal) : [address] ? ? BLD CRITIC Hgb 6.8 g/dL 12.0-16.0 Final [place] LOW g/dL [facility] L ab (Internal) : [address] ? ? BLD Low Hct 24.2 % 37.0-47.0 Final [facility] L ab (Internal) : [address] ? ? BLD Low Mcv 73.6 fL 80.0-96.0 Final [facility] L ab (Internal) : [address] ? ? BLD Low Mch 20.7 pg 26.0-32.0 Final [place] pg [facility] L ab (Internal) : [address] ? ? BLD Low Mchc 28.1 g/dL 31.0-35.0 Final Nort h g/dL [facility] L ab (Internal) : [address] ? ? BLD High Rdw 22.5 % 11.5-14.5 Final [place] % [facility] L ab (Internal) : [address] ? ? BLD ? Plt 318 10*3/uL 130-450 Final Nort h 10*3/uL [facility] L ab (Internal) : [address] ? ? BLD ? Anc 6.03 ? Final [place] 10*3/uL [facility] L ab (Internal) : [address] 07/10/2020 Respiratory FLUID ? Final microbiolog ? Surinder Neely Virus Panel y results Co [facility] L ab (Internal) : [address] 07/10/2020 Crossmatch, BLD ? X-match complete ? Viktoriya Vázquez [facility], # , 1 U [facility] L ab (Internal) : [address] Past Encounters 08/04/2021 Jovan Chapin MD: [address] [place] [address], Ph. 07/27/2021 Malignant Tumor of Colon Jovan Chapin MD: [address] [place] [address], Ph. 07/06/2021 Pleuritic Pain; Anxiety; Administration of Influenza Vaccine; Active or Passive Immunization; Coronary Arteriosclerosis; Iron Deficiency Anemia; Cirrhosis of Liver Camilo Tilley MD: [address] [place] [phone], Ph. 12/08/2020 Malignant Tumor of Colon; Chronic Insomn ia; Anxiety Camilo Tilley MD: [address] [place] [phone], Ph. 09/11/2020 Malignant Tumor of Colon; Incontinence w ithout Sensory Awareness; Pyuria Deanna Casillas MD: [address] [place] [address], Ph. 09/09/2020 Malignant Tumor of Colon; Iron Deficienc y Anemia Camilo Tilley MD: [address] [place] [address], Ph. 08/13/2020 Malignant Tumor of Colon Taylor Cavazos MD: [address] [facility] [place] [address], Ph. 08/05/2020 Postoperative Abdominal Pain; Ascites; M alignant Tumor of Colon Taylor Cavazos MD: [address] [facility] [place] [address], Ph. 07/17/2020 Malignant Tumor of Colon; Chronic Insomn ia; Nicotine Dependence with Current Use Camilo Tilley MD: [address] [place] [address], Ph. 07/16/2020 Malignant Tumor of Colon Taylor Cavazos MD: [address] [facility] [place] [address], Ph. Social History Tobacco Smoking Status Current Every Day Smoker Notes: 2 -6 cigarettes per day Vaccine List Notes: Patient declines all vacc delphine Plan of Care Reminders Provider Appointments None ? ? recorded. Lab None ? ? recorded. Referral None ? ? recorded. Procedures None ? ? recorded. Surgeries None ? ? recorded. Imaging None ? ? recorded. Vitals 07/27/2021 10:15AM Office 15 Height 149.86 cm 07/06/2021 10:40AM Follow Up 20 Height Weight BMI Blood Pressure 149.86 cm 46.49 kg 20.7 kg/m2 100/62 mm[Hg] 12/08/2020 10:00AM Follow Up 20 Height Weight BMI Blood Pressure 149.86 cm 46.28 kg 20.6 kg/m2 103/60 mm[Hg] 09/09/2020 09:00AM Follow Up 20 Height Weight BMI Blood Pressure 149.86 cm 35.15 kg 15.7 kg/m2 98/60 mm[Hg] 08/13/2020 12:15PM Office 15 Height Blood Pressure 149.86 cm 100/70 mm[Hg] 08/05/2020 02:00PM Office 15 Height Blood Pressure 149.86 cm 112/70 mm[Hg] 07/17/2020 02:40PM New Patient 40 Height Weight BMI Blood Pressure 149.86 cm 37.9 kg 16.9 kg/m2 112/68 mm[Hg] 07/16/2020 02:15PM Office 15 Height Weight BMI Blood Pressure 149.86 cm 37.33 kg 16.6 kg/m2 112/62 mm[Hg]
--- OUTSIDE RECORDS SUMMARY | 2021-09-24 07:58 | XMS_ITS | Encounter Summary ---
:1950 Author Care Team Providers Name Role Phone Camilo Moses MD Primary Care Provider [phone] Ari Elizabeth MD General Surgeon [phone] Stephen Mckeon MD Urologist [phone] Reason for Visit Anxiety; colon cancer Assessment and Plan 1. Pleuritic pain Uncertain etiology of the pleu ritic pain which she describes as constant and bothersome. No exertional component. It did not appear to be in any postprandial exacerbation. Recent chest CT reviewed a t length indicating no significant pulmonary abnormality and no bony metastases. Abdo letty pelvic CT reviewed indicating small gallstones but no other pathology of sig nificance. Patient advised to pursue symptomatic treatment and conservative m easures and to discuss this with Dr. Carver in 1 month if not improved. Return here for further evaluation of symptoms persist. 2. Anxiety Well-controlled on current reg imen. ? citalopram 40 mg tablet ? CMP, serum or plasma 3. Administration of influenza v accine 4. Active or passive immunizatio n 5. Coronary arteriosclerosis Chest CT reviewed indicating s ignificant atherosclerosis. Low-fat diet advised. ? lipid panel, serum ? atorvastatin 40 mg tablet 6. Iron deficiency anemia [facility] labs reviewed indicating iron deficiency and anemia. Recheck labs today ? iron saturation, serum ? CBC w/ auto diff 7. Cirrhosis of liver ? lipase, serum or plasma Discussion Note: None recorded.Patient educational handouts: No information available. Plan of Care Reminders Provider Appointments Follow up 01/04/2022 Nara Moses, 20 2:00PM ? Or 30 on or around Ari miguel 09/10/2023 MD [facility] CMP, 07/06/2021 [place] Serum or Plasma Hospital Lab (Internal) ? Lipid 07/06/2021 [facility] ry Panel, Serum Hospital Lab (Internal) ? Iron 07/06/2021 [place] Saturation, Serum Hospital Lab (Internal) ? CBC W/ 07/06/2021 [place] [facility] Auto Diff Hospital Lab (Internal) ? Lipase, 07/06/2021 [place] n[place] Serum or Plasma Hospital Lab (Internal) Referral None ? ? recorded. Procedures None [...] bedtime. Medications Administered None recorded. Vitals Height Weight BMI Blood Pressure 4 ft 11 in 102 lbs 8 oz 20.7 kg/m2 100/62 mm[Hg] Results Lab Results None recorded. Allergies Code Code System Name Reaction Severity Onset Sulfa (Sulfonamide Hives ? ? Antibiotics) 54770 RxNorm Tetracycline Hives ? ? Problems Name [...] cystourethroscopy with placement of right ureteral stent ([facility]--Dr Mckeon) 07/27/2020 07/27/2020 Hysterectomy Information not avai [...] N months? Functional Status Unknown. Past Encounters 07/06/2021 Pleuritic Pain; Anxiety; Administration of Influenza Vaccine; Active or Passive Immunization; Coronary Arteriosclerosis; Iron Deficiency Anemia; Cirrhosis of Liver Camilo Moses MD: [address] [place] [phone], Ph. History of Present Illness ? Colon Cancer F/U Reported By: Patient HPI: Location: ; Dr. Obando [facility] put a stent in on July 27, 2020. Duration: date of surgery:; July 27 021 - stent. Onset/Timing: date of diagnosis:; 07/14/2020. Assoc iated Symptoms: no constipation, no diarrhea, no weight loss, no blood in stool, no nausea, no vomiting; Pt reports she is eating well a nd drinking fluids.wt gain 25 lbs in 3 months. Prior tests: colonos copy; 07/13/2020 ? Anxiety/Depression Reported By: Patient HPI: Quality: symptoms improved. Severity: able to maintain relationships, does not interfere with acti vities of daily living. Associated Symptoms: mood good, no anxiety Note: <div>06/08/21: Follow up Colon cancer.</div><div>
</div><div& gt;07/06/21: Dr Elizabeth will be removing the stent in 07/27/21. Dr. Elizabeth's will be scheduling acolonoscopy at her appointment.</div> Review of Systems ? Notes: <p>Review of systems as prev iously described and otherwise negative for 10 organ systems</p> Physical Exam ? Notes: <p>General: Alert. Not in ac [place] distress.</p><p>HEENT: NCAT. No Nystagmus. Pupils equal, round and reac tive.</p><p>Neck: Without adenopathy or thyromegaly, Trachea midline .</p><p>Cardiopulmonary: No cardiopulmonary distress</p><p>Abdomen: Soft , nondistended. Nontender to palpation right upper quadrant</p><p>Peripheral Va scular: No edema.</p><p>Neurologic: Awake alert and oriented. Cranial nerves II-XII intact. EOMI.</p><p>Musculoskeletal: Normal range of motion. Josee ent points to the area of discomfort as inferior to the right breast up in th e rib area however there is no tenderness to palpation of the ribs</p> <p>Skin: Normal Moisture. Warm.</p><p>Lymphatic: No appreciated adenopathy&lt ;/p><p>Psychiatric: Appropriate</p>
[2021-09-24 09:27] LABS: Abs Immature Grans 0.01 10^3/uL (0.0-0.06); Absolute Basophil Count 0.08 10^3/uL (0.0-0.2); Absolute Eosinophil Count 0.59 10^3/uL (0.0-0.7); Absolute Lymphocyte Count 2.37 10^3/uL (1.2-3.4); Absolute Monocyte Count 0.64 10^3/uL (0.1-0.8); Absolute Neutrophil Count 3.64 10^3/uL (1.2-6.7); Basophils % 1.1; HCT 37.3 % (36.0-46.0); HGB 12.3 g/dL (11.2-15.7); Immature Grans % 0.1; Lymphocytes % 32.3; MCH 31.5 pg (27.0-33.0); MCV 96 fL (80-95); MPV 9.9 fL (8.0-11.0); Monocytes % 8.7; Neutrophils % 49.8; Platelet Count 147 10^3/uL (130-400); RDW 12.9 % (11.7-14.6); RDW-SD 45.6 fL; WBC 7.33 10^3/uL (4.4-10.8)
[2021-09-24 09:39] LABS: ALT 60 U/L (14-59); AST 45 U/L (15-37); Albumin 3.9 g/dL (3.4-5.0); Alkaline Phosphatase 133 U/L (46-116); Anion Gap 8.7 mmol/L (3-11); BUN 19 mg/dL (7-18); Bilirubin, Total 1.2 mg/dL (0.2-1.0); CO2 28.3 mmol/L (21.0-32.0); CREATININE 0.8 mg/dL (0.55-1.02); Calcium 9.2 mg/dL (8.5-10.1); Chloride 105 mmol/L (98-107); Glucose 123 mg/dL (74-106); Potassium 3.6 mmol/L (3.5-5.1); Sodium 142 mmol/L (136-145); Total Protein 7.9 g/dL (6.4-8.2)
[2021-09-24 18:59] LABS: CEA 1.4 ng/mL (See Note)
== END 2021-09-24 07:45 | disposition home or self-care (01) ==
LOC: LBO 07:56
PROVIDERS: Visit Provider Internal Medicine Hematology & Oncology
DX: C18.2 Malignant neoplasm of ascending colon (principal)
CPT/HCPCS: 36415; 80053; 82378; 85025

== ENCOUNTER 2021-12-24 13:11 | Outpatient (CLI) | payer MEDICARE, MEDICAID, SELFPAY ==
[2021-12-24 13:19] LABS: Abs Immature Grans 0.01 10^3/uL (0.0-0.06); Absolute Basophil Count 0.05 10^3/uL (0.0-0.2); Absolute Eosinophil Count 0.36 10^3/uL (0.0-0.7); Absolute Monocyte Count 0.53 10^3/uL (0.1-0.8); Absolute Neutrophil Count 2.92 10^3/uL (1.2-6.7); Basophils % 0.8; HCT 37.4 % (36.0-46.0); HGB 12.6 g/dL (11.2-15.7); Immature Grans % 0.2; Lymphocytes % 35.2; MCH 32.1 pg (27.0-33.0); MCHC 33.7 % (32.0-36.0); MCV 95 fL (80-95); MPV 10.1 fL (8.0-11.0); Monocytes % 8.9; Neutrophils % 48.9; Platelet Count 151 10^3/uL (130-400); RBC 3.93 10^6/uL (3.93-5.22); RDW-SD 45.7 fL; WBC 5.97 10^3/uL (4.4-10.8)
[2021-12-24 13:35] LABS: ALT 32 U/L (14-59); AST 28 U/L (15-37); Alkaline Phosphatase 125 U/L (46-116); Anion Gap 11.2 mmol/L (3-11); BUN 22 mg/dL (7-18); Bilirubin, Total 0.8 mg/dL (0.2-1.0); CO2 25.8 mmol/L (21.0-32.0); CREATININE 0.9 mg/dL (0.55-1.02); Calcium 9.3 mg/dL (8.5-10.1); Chloride 103 mmol/L (98-107); Glucose 97 mg/dL (74-106); Potassium 4.7 mmol/L (3.5-5.1); Sodium 140 mmol/L (136-145)
[2021-12-24 23:00] LABS: CEA 1.6 ng/mL (See Note)
== END 2021-12-24 13:12 | disposition home or self-care (01) ==
LOC: LBO 13:19
PROVIDERS: Visit Provider Internal Medicine Hematology & Oncology
DX: C18.2 Malignant neoplasm of ascending colon (principal)
CPT/HCPCS: 36415; 80053; 82378; 85025